=== PATIENT | female | born 1945 | race Caucasian/White ===

== ENCOUNTER → 2022-08-06 | Day surgery (SDC) | payer OTHER ==
--- NOTE | 2022-08-06 13:22 | RAD REPORT ---
EXAM DESCRIPTION: US - Guided FNA Non Breast - 08/06/2022 10:44 am CLINICAL HISTORY: Thyroid nodule ICD E04.1 COMPARISON: May 2022 ultrasound TECHNIQUE: Risks, benefits and alternatives of procedure explained to the patient and informed conse nt obtained. Skin and subcutaneous tissues anesthetized with lidocaine. Under sonographic guidance, five 25 gauge needle passes were obtained into the dominant nodule within the right lobe of the thyroid gland. Specimens given to pathology. Patient experienced no immediate complication IMPRESSION: Fine-needle aspiration of a dominant nodule within right lobe of thyroid gland
== END ==
LOC: FNA 08:00
PROVIDERS: ATTEND Nurse Practitioner Family
PROC: 0GJK3ZZ Inspection of Thyroid Gland, Percutaneous Approach (ICD-10-PCS; principal; 2022-08-06)
DX: E04.1 Nontoxic single thyroid nodule (principal)
CPT/HCPCS: 88162; 88305

== ENCOUNTER 2022-09-28 08:20 | Day surgery (SDC) | payer OTHER ==
[2022-09-17 12:48] LABS: Albumin 3.4 g/dL (3.4-5.0); Bilirubin Total 0.6 mg/dL (0.2-1.0); Potassium 4.3 mmol/L (3.5-5.1); Protein, Total 6.6 g/dL (6.4-8.2); Thyroid Stimulating Hormone 1.6 uIU/mL (0.358-3.740)
--- NOTE | 2022-09-18 15:17 | EKG ---
Test Date: 2022-09-17 Test Time: 12:02:57 Shop Teacher: KATHY MEASUREMENT RESULTS: Intervals: Rate: 66 IA: 156 QRSD: 82 QT: 402 QTc: 421 [place]: P: 52 IA: 156 QRS: 43 T: 64 INTERPRETIVE STATEMENTS: Normal sinus rhythm Normal ECG Compared to ECG 02/08/2014 11:19:59 No significant changes Electronically Signed On 09-18-22 15:15:21 BRAID FOLDER by Deejay Ríos
[2022-09-28] MEDS ORDERED: Ringers Lactate 1,000 ML IV ONE (08:44)
[2022-09-28] MEDS ORDERED: propofoL 200 MG/20 ML VIAL IV ONE (10:28)
[2022-09-28] MEDS ORDERED: ROCURONIUM 50 MG/5 ML VIAL IV ONE (10:29)
[2022-09-28] MEDS ORDERED: MIDAZOLAM HCL 2 MG/2 ML INJ ONE (10:29)
[2022-09-28] MEDS ORDERED: ONDANSETRON 4 MG/2 ML VIAL ONE (10:31)
[2022-09-28] MEDS ORDERED: GLYCOPYRROLATE 0.2 MG/ML SYR ONE (10:33)
[2022-09-28] MEDS ORDERED: LIDOCAINE 2% MPF 5 ML VIAL ONE (10:33)
[2022-09-28] MEDS ORDERED: NEOSTIGMINE 1 MG/ML -10 ML VIAL ONE (10:33)
[2022-09-28] MEDS ORDERED: FENTANYL CITR 100 MCG/2 ML ONE (10:34)
[2022-09-28] MEDS ORDERED: dexAMETHasone 10 MG/ML VIAL ONE (10:35)
[2022-09-28] MEDS ORDERED: BUPIVACAINE 0.5% PF 10 ML VIAL ONE (10:40)
[2022-09-28] MEDS ORDERED: EPINEPHRINE/PF 1 MG/ML AMP ONE (10:49)
[2022-09-28] MEDS ORDERED: EPHEDRINE SULF 50 MG/ML VIAL ONE (12:54)
[2022-09-28] MEDS ORDERED: Mastisol Adhesive Liq ONE (13:13)
--- NOTE | 2022-09-28 13:37 | P.OP ---
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 R thyroid & isthmus, B. R inf parathyroid candidate Findings: No obvious malignant features on frozen section Operative Technique: The patient presented with thyroid nodules, the right thyroid nodule was suspicious on molecular testing via FNA with a follicular lesion on cytopathology. The risks benefits and alternatives to surgery were discussed with the patient including hemithyroidectomy with possible completion thyroidectomy if obvious malignancy was noted on frozen section. The patient elected to proceed. Patient was brought to the operating room she was placed under general anesthesia via oral endotracheal tube. A shoulder roll was placed and the neck was extended. There were significant visible pulsations of the right lower neck. On palpation, the right thyroid nodule was difficult to palpate but there was a 1 cm firm nodule noted at the isthmus, consistent with preoperative imaging. Preoperative imaging was reviewed and there was no significant vascular abnormality noted that was discernible via available ultrasound. Approximately 2 mL of 0.5% Marcaine with epinephrine was injected into the planned incision site. The skin was prepped and draped in standard sterile fashion. A 4 to 5 cm incision was made through the skin and subcutaneous tissue using a 15 blade scalpel. Bovie electrocautery was used to incise through the fatty tissues and the platysma was identified. Skin rakes were used to retract the skin flaps well subplatysmal flaps were elevated superiorly and inferiorly. The skin flaps were retracted and the strap muscles were identified in the midline and carefully divided along the linea alba. The strap muscles were carefully elevated over the nodule within the isthmus. The right-sided strap muscles were then elevated off of the thyroid capsule. The inferior border was identified and carefully dissected from surrounding tissues. Vessels were divided using the LigaSure. The inferior parathyroid was identified along the capsule. It was carefully elevated off of the capsule but during dissection was noted to be devoid of vascular flow and was removed. A small portion of the parathyroid was sent to pathology for pathologic confirmation via frozen section. The remaining portion was placed in saline for possible later reimplantation. The middle thyroid vein and inferior thyroid vein were ligated using the LigaSure and the inferior pole was carefully mobilized. The isthmus was divided just to the left of the thyroid nodule using the LigaSure. The isthmus was then elevated off the anterior tracheal wall using Bovie electrocautery, taking care to avoid any damage to the tracheal wall. The lateral border of the thyroid was then identified and followed in an inferior to superior position. The superior pole of the thyroid was noted to extend quite high superiorly and to wrap around the upper portion of the larynx. The superior vascular pedicle was divided using the LigaSure. A Grimstead was used to grasp and retract the superior pole soft tissue attachments were bluntly dissected using a peanut sponge. Additional soft tissue attachments were divided using the LigaSure, freeing up the superior pole. Attention was then turned to the tracheoesophageal groove. The inferior pole was carefully elevated and dissection was judiciously carried out using a Max dissector until the recurrent laryngeal nerve was identified. The nerve appeared to be robust in its structure and dissection was carefully performed along the length of the nerve in an inferior to superior direction, carefully elevating the thyroid tissue and judiciously ligating small vessels with the LigaSure. Final tissue attachments were then released and the area of Shearer's ligament. A marking suture was placed at the isthmus and the thyroid was sent to pathology for frozen section analysis. The surgical bed was inspected and there was no evidence of active bleeding. The surgical bed was packed with Ray-Ira gauze sponges while awaiting pathologic diagnosis In intraoperative consultation with the pathologist, it was confirmed that the first specimen was consistent with parathyroid tissue with no notable abnormalities. She also confirmed that the 1.6 cm superior pole nodule appeared to be well-circumscribed. There were a number of microfollicles with a overall paucity of colloid but no obvious suspicious nuclear features and no obvious papillary cellular arrangement. Frozen section was felt to be likely benign. On return to the operating room, the gauze sponges were removed from the surgical bed and the surgical field was reinspected. There was no evidence of bleeding or bruising. The previously set aside parathyroid candidate was carefully morselized with a 15 blade scalpel and the tissue was placed between the strap muscles on the right side. A 10 Serbian round CHEYANNE drain was then placed through the skin of the right neck flap and secured using 2-0 silk suture. The drain was cut to appropriate length and placed within the right thyroid bed. A single Vicryl suture was used to approximate the strap muscles across the thyroid in midline. The skin was then closed in a layered fashion using 4-0 Vicryl deep sutures and Monocryl subcuticular sutures. After closure, the skin was cleaned and dried, Mastisol and Steri-Strips were applied to the incision. All sponge and peanut counts were reported as correct by the operating room staff. The patient was then returned to care of anesthesia for awakening and extubation in the operating room which proceeded without difficulty. Complications: None Drain(s): CHEYANNE drain Implants: none Transferred to: Recovery Room Condition: Good
[2022-09-28] MEDS: HYDROMORPHONE HCL 1 MG/ML INJ ONE ×2 (13:55→14:02)
[2022-09-28 14:12] VITALS: TEMP 97
[2022-09-28] MEDS ORDERED: TRAMADOL HCL 50 MG TAB ONE (15:04)
[2022-09-28 16:22] VITALS: BP 144/64; O2SAT 98
== END 2022-09-28 16:10 | disposition home or self-care (01) ==
LOC: OR 08:20
PROVIDERS: ADMIT Otolaryngology; ATTEND Otolaryngology
PROC: 0GBG0ZZ Excision of Left Thyroid Gland Lobe, Open Approach (ICD-10-PCS; 2022-09-28)
PROC: 0GBJ0ZZ Excision of Thyroid Gland Isthmus, Open Approach (ICD-10-PCS; 2022-09-28)
PROC: 0GTH0ZZ Resection of Right Thyroid Gland Lobe, Open Approach (ICD-10-PCS; principal; 2022-09-28 09:45)
DX: C73 Malignant neoplasm of thyroid gland (principal); I10 Essential (primary) hypertension
CPT/HCPCS: 60225; 93005; 36415; 88331; 88305; 88307; 84443; 83970; 80053; 82306; J2704; J2710; J0171; J2001; J2250; J3010; J1100; J1170; J7120; J2405

== ENCOUNTER 2023-07-18 08:53 | Observation (INO) | payer OTHER ==
[2023-07-12 12:33] LABS: Absolute Lymphocytes (CBC) 1.5 K/uL (0.7-4.9); Hematocrit 40.8 % (36.0-45.0); Lymphocytes % 15.6 % (15.3-44.8); MCV 88.1 fL (80-100); MPV 7.4 fL (7.6-11.3); Platelets 367 thou/uL (152-406); RBC Red Blood Cell Count 4.63 M/uL (3.86-4.86)
[2023-07-12 12:34] LABS: Specific Gravity 1.018 (1.005-1.030); Transitional Epithelial <5 /HPF (None Seen); Urine Bacteria None Seen /HPF (<20); Urine Bilirubin NEGATIVE (Negative); Urine Blood Negative (Negative); Urine Clarity Turbid (Clear); Urine Color Light-Yellow (Yellow); Urine Glucose NEGATIVE (Negative); Urine Protein NEGATIVE (Negative); Urine RBC <5 /HPF (None Seen); Urine Urobilinogen Normal (Normal)
[2023-07-18] MEDS ORDERED: Ringers Lactate 1,000 ML IV ONE (09:10)
[2023-07-18] MEDS ORDERED: CEFAZOLIN SODIUM 2 GM/VIAL ONE (09:10)
[2023-07-18] MEDS ORDERED: FENTANYL CITR 100 MCG/2 ML ONE (09:15)
[2023-07-18] MEDS ORDERED: propofoL 200 MG/20 ML VIAL IV ONE (09:15)
[2023-07-18] MEDS ORDERED: ROCURONIUM 50 MG/5 ML VIAL IV ONE (09:17)
[2023-07-18] MEDS ORDERED: MIDAZOLAM HCL 2 MG/2 ML INJ ONE (09:17)
[2023-07-18] MEDS ORDERED: VASOPRESSIN 20 UNIT/ML VIAL ONE (09:19)
[2023-07-18] MEDS ORDERED: ONDANSETRON 4 MG/2 ML VIAL ONE ×2 (09:19→09:53)
[2023-07-18] MEDS ORDERED: LIDOCAINE 2% MPF 5 ML VIAL ONE (09:19)
[2023-07-18] MEDS ORDERED: CEFAZOLIN SODIUM 1 GM/VIAL ONE (09:20)
[2023-07-18] MEDS ORDERED: NA CHLORIDE 0.9% 100 ML ONE (09:20)
[2023-07-18] MEDS ORDERED: LIDOCAINE HCL/EPINEPHRINE 20 ML MDV ONE (09:20)
[2023-07-18] MEDS ORDERED: METOCLOPRAMIDE 10 MG/2mL INJ ONE (09:55)
[2023-07-18] MEDS ORDERED: MORPHINE 10 MG/ML VIAL ONE (11:09)
[2023-07-18] MEDS ORDERED: ESZOPICLONE 1 MG TAB PO PRN (12:21)
[2023-07-18] MEDS ORDERED: ACETAMINOPHEN 500 MG TAB PO PRN (12:23)
[2023-07-18] MEDS ORDERED: PROMETHAZINE INJ 25 MG/ML AMP IV PRN (12:23)
[2023-07-18] MEDS ORDERED: NA CHLORIDE 0.9% 1,000 ML ONE ×2 (12:43→12:44)
[2023-07-18] MEDS: FENTANYL CITR 100 MCG/2 ML ONE ×2 (12:46→13:05)
[2023-07-18] MEDS ORDERED: KETOROLAC 30 MG/ML INJ ONE (13:02)
[2023-07-18 13:14] VITALS: O2SAT 97
--- OUTSIDE RECORDS SUMMARY | 2023-07-18 13:21 | XMS REPORT | Continuity of Care Document ---
:1945 Author Organization [facility] Address [address] [place] [id number] Care Team Providers Name Role Phone [email or web address] Attending Clinician Unavailable L_Pena Attending Clinician Unavailable [email or web address]_S Admitting Clinician Unavailable L_Pena Admitting Clinician Unavailable Payers Payer Name Policy Type Policy Number Effective Date Expiration Date Lulu MAGAÑA (MEDICARE [id number] 2022 REPLACEMENT PPO) 00:00:00 Problems This patient has no known problems. Allergies, Adverse Reactions, Alerts This patient has no known allergies or adverse reactions. Social History Smoking Status Start Date Stop Date Source Never Smoker [facility] Medications Ordered Filled Start Stop Current Ordering Indication Dosage Frequency Signature Comments Components Source Medication Medication Date Date Medication? Clinician (SIG) Name Name carvedilol carvedilol No carvedilol [place] 12.5 mg 12.5 mg 12.5 mg Commun i tablet TAKE tablet TAKE tablet ty 1 TABLET 1 TABLET TAKE 1 Hospi ta (12.5 MG (12.5 MG TABLET l TOTAL) BY TOTAL) BY (12.5 MG C linics MOUTH 2 MOUTH 2 TOTAL) BY (TWO) TIMES (TWO) TIMES MOUTH 2 A DAY WITH A DAY WITH (TWO) MEALS MEALS TIMES A DIRECTED DIRECTED DAY WITH MEALS DIRECTED clopidogrel clopidogrel No clopidogre [place] 75 mg 75 mg l 75 mg Communi tablet TAKE tablet TAKE tablet ty 1 TABLET BY 1 TABLET BY TAKE 1 Hospita MOUTH EVERY MOUTH EVERY TABLET BY l DAY DAY MOUTH Clinics EVERY DAY eszopiclone eszopiclone No eszopiclon [place] 2 mg tablet 2 mg tablet e 2 mg Communi TAKE 1 TAKE 1 tablet ty TABLET BY TABLET BY TAKE 1 Hos maggie MOUTH AT MOUTH AT TABLET BY l NIGHT IF NIGHT IF MOUTH AT Cli nics NEEDED FOR NEEDED FOR NIGHT IF SLEEP SLEEP NEEDED FOR SLEEP furosemide furosemide No furosemide [place] 20 mg 20 mg 20 mg Communi tablet TAKE tablet TAKE tablet ty 1 TABLET BY 1 TABLET BY TAKE 1 Hospita MOUTH PER MOUTH PER TABLET BY l WEEK ONCE A WEEK ONCE A MOUTH PER Clinics WEEK. KEEP WEEK. KEEP WEEK ONCE HYDRATED. HYDRATED. A WEEK. KEEP HYDRATED. levothyroxi levothyroxi No levothyrox [place] ne 75 mcg ne 75 mcg ine 75 mcg Communi tablet TAKE tablet TAKE tablet ty 1 TABLET BY 1 TABLET BY TAKE 1 Hospita MOUTH EVERY MOUTH EVERY TABLET BY l DAY DAY MOUTH Clinics EVERY DAY losartan 50 losartan 50 No losartan [place] mg tablet mg tablet 50 mg Comm uni TAKE 1 TAKE 1 tablet ty TABLET BY TABLET BY TAKE 1 Hos maggie MOUTH 1 MOUTH 1 TABLET BY l TIME EACH TIME EACH MOUTH 1 Cl inics DAY MONITOR DAY MONITOR TIME EACH BP AND HOLD BP AND HOLD DAY IF TOP BP IF TOP BP MONITOR BP NUMBER IS NUMBER IS AND HOLD LESS THAN LESS THAN IF TOP BP 110. 110. NUMBER IS LESS THAN 110. pravastatin pravastatin No pravastati [place] 40 mg 40 mg n 40 mg Communi tablet TAKE tablet TAKE tablet ty 1 TABLET BY 1 TABLET BY TAKE 1 Hospita MOUTH EVERY MOUTH EVERY TABLET BY l DAY IN THE DAY IN THE MOUTH Cl inics MORNING MORNING EVERY DAY IN THE MORNING Zithromax Zithromax No Zithromax [place] Z-Vasile 250 Z-Vasile 250 Z-Vasile 250 Communi mg tablet mg tablet mg tablet ty TAKE 2 TAKE 2 TAKE 2 Hospita TABLETS TABLETS TABLETS l (500 MG) BY (500 MG) BY (500 MG) Clinics ORAL ROUTE ORAL ROUTE BY ORAL ONCE DAILY ONCE DAILY ROUTE ONCE FOR 1 DAY FOR 1 DAY DAILY FOR THEN 1 THEN 1 1 DAY THEN TABLET (250 TABLET (250 1 TABLET MG) BY ORAL MG) BY ORAL (250 MG) ROUTE ONCE ROUTE ONCE BY ORAL DAILY FOR 4 DAILY FOR 4 ROUTE ONCE DAYS DAYS DAILY FOR 4 DAYS alprazolam alprazolam No alprazolam [place] 1 mg tablet 1 mg tablet 1 mg C ommuni TAKE 1 TAKE 1 tablet ty TABLET BY TABLET BY TAKE 1 Hos maggie MOUTH EVERY MOUTH EVERY TABLET BY l DAY AT DAY AT MOUTH Clinics BEDTIME BEDTIME EVERY DAY NEEDED FOR NEEDED FOR AT BEDTIME SLEEP SLEEP NEEDED FOR SLEEP bupropion bupropion No bupropion [place] HCl XL 300 HCl XL 300 HCl XL 300 Communi mg 24 hr mg 24 hr mg 24 hr ty tablet, tablet, tablet, Hospit a extended extended extended l release release release Clinic s TAKE 1 TAKE 1 TAKE 1 TABLET BY TABLET BY TABLET BY MOUTH EVERY MOUTH EVERY MOUTH DAY IN THE DAY IN THE EVERY DAY MORNING -DO MORNING -DO IN THE NOT CRUSH, NOT CRUSH, MORNING CHEW, OR CHEW, OR -DO NOT SPLIT. SPLIT. CRUSH, CHEW, OR SPLIT. Vital Signs Vital Name Observation Time Observation Value Comments Source BP Diastolic 2022-12-27 00:00:00 82 mm[Hg] [facility] Height 2022-12-27 00:00:00 65 [in_i] [facility] BMI (Body Mass 2022-12-27 00:00:00 24.3 kg/m2 [facility]) [facility] BP Systolic 2022-12-27 00:00:00 145 mm[Hg] [facility] Body Weight 2022-12-27 00:00:00 2336 [oz_av] [facility] Procedures This patient has no known procedures. Plan of Care Planned Activity Planned Date Details Comments Source Diagnostic Test 2022-12-27 rapid SARS CoV 2 Ag, [facility] Pending 00:00:00 QL [place], respiratory Hospital Clinics specimen [code = rapid SARS CoV 2 Ag, QL [place], respiratory specimen] Diagnostic Test 2022-12-27 rapid strep group A, [facility] Pending 00:00:00 throat [code = rapid Hospita Clinics strep group A, throat] Instructions [facility] s Encounters Start End Encounter Admission Attending Care Care Encounter Source Date/Time Date/Time Type Type Clinicians Facility Department ID 2023-07-10 2023-07-10 Outpatient GC_GCBZW_Ka PRIV PRIV [id number] [facility] 00:00:00 00:00:00 barry_S [id number] Medic al 2023-05-22 2023-05-22 Outpatient GC_GCBZW_Ka PRIV PRIV [id number] [facility] 00:00:00 00:00:00 julianaa_Lulu [id number] Medic al 2023-05-08 2023-05-08 Outpatient GC_GCBZW_Ka PRIV PRIV [id number] [facility] 00:00:00 00:00:00 diyala_S [id number] Medic al 2023-04-18 2023-04-18 Outpatient GC_GCBZW_Ka PRIV PRIV [id number] [facility] 00:00:00 00:00:00 diyala_S [id number] Medic al 2023-04-10 2023-04-10 Outpatient GC_GCBZW_Ka PRIV PRIV [id number] [facility] 00:00:00 00:00:00 diyala_S [id number] Medic al 2023-04-09 2023-04-09 Outpatient GC_GCBZW_Ka PRIV PRIV [id number] [facility] 00:00:00 00:00:00 diyala_S [id number] Medic al 2023-01-13 2023-01-13 Outpatient L_Pena [facility] [id number] 023 [place] 00:00:00 00:00:00 0416 [facility] i ty [facility]osp[facility] Clinics 2022-12-27 2022-12-27 Outpatient L_Pena [facility] [id number] 023 [place] 00:00:00 00:00:00 0330 Commun i ty Hospita l Clinics 2022-12-27 2022-12-27 [facility] [place] - [place] 30 [place] 00:00:00 00:00:00 Gutierrez Candelario Comm beulah HARRIS, MSN, [facility]: [address], CLINIC [address] [place] [phone] , Ph. Results Test Description Test Time Test Comments Results Result Comments Source rapid strep group A, throat 2022-12-27 14:55:00 Test Item Value Reference Range Interpretation Comme nts Strep (test code = Strep) [facility]Presence] in Respiratory specimen by Rapid [id number] 14:55:00 Test Item Value Reference Range Interpretation Comments SARS CoV 2 (test code = SARS CoV 2) negative [facility]
[2023-07-18 14:13] VITALS: BMI 23.3
[2023-07-18] MEDS: Ringers Lactate 1,000 ML IV SCH ×2 (15:08→22:24)
[2023-07-18] MEDS: MORPHINE 2 MG/ML SYR IV PRN ×2 (15:45→22:13)
[2023-07-18] MEDS: carvediloL 12.5 MG TAB PO SCH (22:14)
[2023-07-19] MEDS: MORPHINE 2 MG/ML SYR IV PRN ×4 (03:16→17:12)
[2023-07-19] MEDS: Ringers Lactate 1,000 ML IV SCH ×2 (04:07→11:07)
[2023-07-19] MEDS ORDERED: LEVOTHYROXINE SOD 0.1 MG TAB PO SCH (06:30)
[2023-07-19 07:15] LABS: Absolute Lymphocytes (CBC) 0.9 K/uL (0.7-4.9); Hematocrit 33.5 % (36.0-45.0); Lymphocytes % 11.9 % (15.3-44.8); MPV 7.1 fL (7.6-11.3); Platelets 265 thou/uL (152-406)
[2023-07-19 07:27] LABS: Potassium 4.3 mEq/L (3.5-5.1)
[2023-07-19] MEDS: carvediloL 12.5 MG TAB PO SCH (08:29)
[2023-07-19] MEDS ORDERED: SERTRALINE HCL 50 MG TAB PO SCH (09:00)
[2023-07-19] MEDS ORDERED: lisinopriL 10 MG TAB PO SCH (09:00)
[2023-07-19] MEDS ORDERED: LOSARTAN/HCTZ 50-12.5 PO SCH (09:00)
[2023-07-19 16:53] VITALS: BP 135/62; TEMP 99.5
--- NOTE | 2023-07-22 09:51 | OP ---
Date of Procedure: 07/18/2023 Surgeon: Maria Eugenia Caceres MD [employer]illing Machine Hand: Tashia Baker Preoperative Diagnosis: Cystocele or anterior wall prolapse, vault prolapse, stress urinary incontin ence and urgency incontinence with overactive bladder. Postoperative Diagnoses: 1.Stage II anterior wall and apical prolapse. 2.Distal posterior wall defect, perineal defect, stress urinary incontinence, and overactive bladder , possible apical enterocele. Procedures Performed: 1.Vaginal biologic graft augmented anterior wall repair and bilateral sacrospinous ligament fixation , colpopexy. 2.Distal posterior wall repair and perineorrhaphy. 3.Transobturator midurethral sling using the single incision Solyx system and cystoscopy. Estimated Blood Loss: 100. Urine Output: 100. Fluids: Ringer's lactate 1 L. Specimens: No specimens. Complications: No complication. Drains: Buenrostro catheter, vaginal packing. Findings: POP-Q -1, 0, -3, 4.5, moderate 8, - 2, -2 apical enterocele. Cystoscopy was ne gative with no evidence of perforation or foreign body in the bladder, in the areas of the sling as w ell as the colpopexy. Strong jets of urine from both orifices. Biologic [place] dermis graft was fashi oned to 8 x 6 x 5 cm. Two Prolene sutures for the sacrospinous fixation and PDS sutures for the whit e lines on both sides and PDS sutures for the vaginal apex as well as the distal anterior wall fixati on of the graft to the connective tissue with an excellent lift of the anterior wall, also the distal 3 cm of the anterior vaginal wall where the urethra lies. Then, posterior defect repaired without a graft. Description Of Procedure: After informed consent was verified, patient was taken back to the OR, lois lizzette in supine fashion on the operating table. 2 g of Ancef was given. SCDs were placed. She was pl aced under general anesthesia. She was placed in dorsal lithotomy position using Derek stirrups. Lo wer abdomen, vulva, vagina, perineum, and bilateral thighs were prepped and draped in a sterile fashi on with Betadine and POP-Q was then done. Time-out was done and the procedure was started after placing a Buenrostro in the bladder and draining the bladder, then retracting it superiorly. The anterior vaginal wall was significantly dropped as well as lateral paravaginal space. Two 3-0 Vicryl sutures were placed at top of the vaginal apex on each side to tag the areas of the vaginal apex and the . Then, ischial spines were palpated. 5 cm of the anterior vaginal wall was injected with dilute vasopressin and opened up with a 15-blade superiorly and inferiorly, extending the incision 5 cm from the UVJ to the vaginal wall. Then, dissection was carried in the plane below the connective tissue between the connective tissue a nd the bladder flap. Paravaginal space was entered by taking down the bladder on both sides past the pubic ramus. Then from the paravaginal space, pararectal space was entered. The ischial spine was palpated and this was cleaned up to expose sacrospinous ligament by sweeping medially and posteriorly and then laterally and superiorly to clean the white line. This dissection was performed on both si asha. Then anteriorly dissection performed of the bladder to the bladder neck, it from the vaginal epithelium and sub-epithelium, and proximally at the vaginal wall, the enterocele was dissec kay and vaginal connective tissue was exposed. Capio device was used to take down Prolene sutures 2 cm medial and posterior to the ischial spine on the sacrospinous ligament without encircling it, but going for a good bite of it, 1 on each side and PDS on Capio was placed a centimeter and half lateral and superior to the ischial spine on the white line, 1 on each side. Then, Ed retractor was used. All the sutures were placed on clamps and re tracted. Three PDS sutures were placed in the proximal midline near the vault on the vaginal epithelium and co nnective tissue and distally at the UVJ. Then, the graft was fashioned with interspinous length of 8 cm, anterior-posterior length of 6 cm and distal width of 5 cm. The central 3-0 PDS sutures at the proximal and distal parts of the anterior vaginal wall were fixed to the graft, then the Prolene sutu res on the sacrospinous ligament were hooked onto the lateral most part of the graft and on the proxi mal part with the ciarra stitch and then PDS sutures were just passed through the graft 3 cm distal t o the sacrospinous bite. The vaginal epithelium closed with 2-0 Vicryl stitch first and then this was left on a cla mp. Then, central, proximal, midline sutures were tied down to the graft and then distal midline sut ures were tied down to the graft. Then, the sacrospinous bites were tied down on the ligament with t he graft touching the ligament snugly and then PDS sutures on the white line were tied down. There w as excellent lift of the entire anterior vaginal wall including the distal anterior vaginal wall that was under the urethra. This was a very satisfactory lift, then the vaginal epithelium was closed in a continuous running horizontal mattress fashion. Midurethral slin.5 cm midurethral incision was made after injecting dilute vasopressin under the connective tissue. The vaginal epithelium, sub-epithelium, and connective tissue were incised. The n, tunnels were made underneath this towards the ipsilateral obturator space. After passing the infe rior pubic ramus, the obturator membrane was perforated and track was widened by pulling the scissors out. Similar dissection was performed on the right and left. Then, the Solyx graft was taken. Mid line was marked with Monocryl suture. Then, it was loaded onto the needle. Then this was entered ac cording to directions, passing it to the black line, falling through the tract of the entire dissecti on, and once it passed the obturator membrane, then it was advanced carefully with gentle pressure to wards the obturator muscle. Once the anchor was in the obturator muscle and I could feel it, the sli ng arm was deployed. Then, with a gentle tap, I confirmed that it was anchored well. The second silvio e was loaded in a similar fashion. The pass was taken in a 45 degrees angle. This was deployed on t he contralateral obturator muscle. Then leaving this in place, I was able to place the Metzenbaum sc issors behind the mesh graft. Mesh graft lay very flat and apposition with the urethra with slight p ulling instrument between the urethra and the graft and and tensioned the ureth ra appropriately after the instrument was removed. Then, the graft was deployed and the needle was r emoved. After antibiotic irrigation here, it was closed with the help of 3-0 Vicryl in a continuous running locked fashion. Buenrostro was removed. Cystoscopy was performed. No evidence of any perforatio n of the mesh in the lateral wall. Both ureteric orifices were well visualized. No foreign body. B oth the ureters were patent. The bladder was then drained and re-catheterized and retracted superior ly. There was no perforation of the lateral fornices. Posterior perineorrhaphy: Dilute vasopressin was injected at the perineum and the distal part of the posterior wall. A ilana shaped incision was made in the distal part and the perineum as well. Va ginal epithelium and perineal epithelium were excised. The connective tissue was dissected and defec t was exposed. The distal rectovaginal septum had to be reattached to the perineal body. The perine al body reconstruction was performed with the help of 2-0 Vicryl sutures, 2 layers of 3 interrupted s utures. Once this was done, then the rectovaginal septum was to be connected with 2-0 Vicryl sutures , 2 on each side. Then closed the vaginal epithelium and the perineal epithelium with the help of a continuous running 3-0 Vicryl in the subcutaneous in subcuticular fashion. Rectovaginal exam was per formed all the way up to the ischial spine area. No evidence of any suture, foreign body, or trauma to the rectum. Vaginal packing was placed after changing gloves. All the instrument, needle, and sponge counts were correct at the end of the case. The patient tolerated the procedure very well. No pulmonary or car diac complications. She had recovered and taken to PACU in stable condition for overnight admission. We will remove the vaginal packing in the morning and then she will be discharged home for a voidin g trial with the visiting nurses. Her sister and son would be briefed about her condition and her pr ocedure. She has a followup in office in 1 week and 6 weeks. SAUL/NICOLE Voice ID: [id number] Report ID: [id number]
== END 2023-07-19 18:57 | disposition home health service (06) ==
LOC: OR 08:53 → 2ND 12:23
PROVIDERS: ADMIT Obstetrics & Gynecology; ATTEND Obstetrics & Gynecology
PROC: 0JUC0JZ Supplement of Pelvic Region Subcutaneous Tissue and Fascia with Synthetic Substitute, Open Approach (ICD-10-PCS; 2023-07-18)
PROC: 0JQC0ZZ Repair Pelvic Region Subcutaneous Tissue and Fascia, Open Approach (ICD-10-PCS; 2023-07-18)
PROC: 0USG8ZZ Reposition Vagina, Via Natural or Artificial Opening Endoscopic (ICD-10-PCS; 2023-07-18)
PROC: 0TSD0ZZ Reposition Urethra, Open Approach (ICD-10-PCS; principal; 2023-07-18 10:00)
DX: N81.12 Cystocele, lateral (principal); N32.81 Overactive bladder; N39.46 Mixed incontinence
CPT/HCPCS: 57288; 85025 ×2; 81001; 80048; 36415 ×2; 86900; 86850; 85610; 86901; 85730; 94010 ×2; 31720; 94760; 57260; 57267; 57282; J2704; J2765; J2001; J2250; J3010 ×2; J2270 ×6; J2405 ×2; C1771; J7120 ×5; J7030 ×2; J0690; G0378; G0379

== ENCOUNTER 2024-09-26 20:21 | Inpatient (IN) | payer OTHER ==
--- OUTSIDE RECORDS SUMMARY | 2024-09-26 20:23 | XMS REPORT | Continuity of Care Document ---
Author Name Unknown Address [address] [place], [place] [id number] [facility]connect Address [address] [place] [address] [address] [place] [address] Care Team Providers Care Terrazzo Journeyman Name Role Phone [email or web address]_S Attending Clinician Unavaila ble L_Pena Attending Clinician Unavailable [email or web address]_S Admitting Clinician Unavaila ble L_Pena Admitting Clinician Unavailable Payers Payer Name Policy Type Policy Number Effective Date Expirati on Date Source [employer] (MEDICARE REPLACEMENT PPO) [id number] 2022 00:00:00 Problems Condition Name Condition Details Condition Category Status Onset Date Resolution Date Last Treatment Date Treating Clinician Comments Source Acute urinary tract infection Acute Urinary Tract Infection Problem Active 2023-09 00:00: 00 [facility] Amnesia for day to day facts Amnesia for Day to Day Facts Problem Active 2023-09 00:00: 00 [facility] Impairment of balance Impairment of Balance Problem Active 2023-09 00:00: 00 [facility] Atrophy of skeletal muscle of pelvis Atrophy of Skeletal Muscle of Pelvis Problem Active 2022-09 00:00: 00 [facility] Constipati on Constipati on Problem Active 2022-09 0-11 00:00: 00 [facility] Lateral cystocele Lateral Cystocele Problem Active 2022-09 0-11 00:00: 00 [facility] Female stress incontinen ce Female Stress Incontinen ce Problem Active 2022-09 0- 00:00: 00 [facility] Atrophic vaginitis Atrophic Vaginitis Problem Active 2022-09 0-11 00:00: 00 [facility] Incontinen ce of feces Incontinen ce of Feces Problem Active 2022-09 0-11 00:00: 00 [facility] Urge incontinen ce of urine Urge Incontinen ce of Urine Problem Active 2022-09 0-11 00:00: 00 [facility] Hypothyroi dism Hypothyroi dism Problem Active 8 00:00: 00 [facility] Hyperlipid emia Hyperlipid emia Problem Active 8 00:00: 00 [facility] Anxiety Anxiety Problem Active 8 00:00: 00 [facility] Depressive disorder Depressive Disorder Problem Active 05-08 00:00: 00 [facility] Essential hypertensi on Essential Hypertensi on Problem Active 05-08 00:00: 00 [facility] Overactive urinary bladder Overactive Urinary Bladder Problem Active 05-08 00:00: 00 [facility] 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 Ordering Clinician Indication Dosage Frequency Signature (SIG) Comments Components Source carvedilol 12.5 mg tablet TAKE 1 TABLET (12.5 MG TOTAL) BY MOUTH 2 (TWO) TIMES A DAY WITH MEALS DIRECTED carvedilol 12.5 mg tablet TAKE 1 TABLET (12.5 MG TOTAL) BY MOUTH 2 (TWO) TIMES A DAY WITH MEALS DIRECTED No carvedilol 12.5 mg tablet TAKE 1 TABLET (12.5 MG TOTAL) BY MOUTH 2 (TWO) TIMES A DAY WITH MEALS DIRECTED [facility] clopidogrel 75 mg tablet TAKE 1 TABLET BY MOUTH EVERY DAY clopidogrel 75 mg tablet TAKE 1 TABLET BY MOUTH EVERY DAY No clopidogre l 75 mg tablet TAKE 1 TABLET BY MOUTH EVERY DAY [facility] eszopiclone 2 mg tablet TAKE 1 TABLET BY MOUTH AT NIGHT IF NEEDED FOR SLEEP eszopiclone 2 mg tablet TAKE 1 TABLET BY MOUTH AT NIGHT IF NEEDED FOR SLEEP No eszopiclon e 2 mg tablet TAKE 1 TABLET BY MOUTH AT NIGHT IF NEEDED FOR SLEEP [facility] furosemide 20 mg tablet TAKE 1 TABLET BY MOUTH PER WEEK ONCE A WEEK. KEEP HYDRATED. furosemide 20 mg tablet TAKE 1 TABLET BY MOUTH PER WEEK ONCE A WEEK. KEEP HYDRATED. No furosemide 20 mg tablet TAKE 1 TABLET BY MOUTH PER WEEK ONCE A WEEK. KEEP HYDRATED. [facility] levothyroxi ne 75 mcg tablet TAKE 1 TABLET BY MOUTH EVERY DAY levothyroxi ne 75 mcg tablet TAKE 1 TABLET BY MOUTH EVERY DAY No levothyrox ine 75 mcg tablet TAKE 1 TABLET BY MOUTH EVERY DAY [facility] losartan 50 mg tablet TAKE 1 TABLET BY MOUTH 1 TIME EACH DAY MONITOR BP AND HOLD IF TOP BP NUMBER IS LESS THAN 110. losartan 50 mg tablet TAKE 1 TABLET BY MOUTH 1 TIME EACH DAY MONITOR BP AND HOLD IF TOP BP NUMBER IS LESS THAN 110. No losartan 50 mg tablet TAKE 1 TABLET BY MOUTH 1 TIME EACH DAY MONITOR BP AND HOLD IF TOP BP NUMBER IS LESS THAN 110. [facility] pravastatin 40 mg tablet TAKE 1 TABLET BY MOUTH EVERY DAY IN THE MORNING pravastatin 40 mg tablet TAKE 1 TABLET BY MOUTH EVERY DAY IN THE MORNING No pravastati n 40 mg tablet TAKE 1 TABLET BY MOUTH EVERY DAY IN THE MORNING [facility] Zithromax Z-Vasile 250 mg tablet TAKE 2 TABLETS (500 MG) BY ORAL ROUTE ONCE DAILY FOR 1 DAY THEN 1 TABLET (250 MG) BY ORAL ROUTE ONCE DAILY FOR 4 DAYS Zithromax Z-Vasile 250 mg tablet TAKE 2 TABLETS (500 MG) BY ORAL ROUTE ONCE DAILY FOR 1 DAY THEN 1 TABLET (250 MG) BY ORAL ROUTE ONCE DAILY FOR 4 DAYS No Zithromax Z-Vasile 250 mg tablet TAKE 2 TABLETS (500 MG) BY ORAL ROUTE ONCE DAILY FOR 1 DAY THEN 1 TABLET (250 MG) BY ORAL ROUTE ONCE DAILY FOR 4 DAYS [facility] alprazolam 1 mg tablet TAKE 1 TABLET BY MOUTH EVERY DAY AT BEDTIME NEEDED FOR SLEEP alprazolam 1 mg tablet TAKE 1 TABLET BY MOUTH EVERY DAY AT BEDTIME NEEDED FOR SLEEP No alprazolam 1 mg tablet TAKE 1 TABLET BY MOUTH EVERY DAY AT BEDTIME NEEDED FOR SLEEP [facility] bupropion HCl XL 300 mg 24 hr tablet, extended release TAKE 1 TABLET BY MOUTH EVERY DAY IN THE MORNING -DO NOT CRUSH, CHEW, OR SPLIT. bupropion HCl XL 300 mg 24 hr tablet, extended release TAKE 1 TABLET BY MOUTH EVERY DAY IN THE MORNING -DO NOT CRUSH, CHEW, OR SPLIT. No bupropion HCl XL 300 mg 24 hr tablet, extended release TAKE 1 TABLET BY MOUTH EVERY DAY IN THE MORNING -DO NOT CRUSH, CHEW, OR SPLIT. [facility] aspirin aspirin No aspirin [facility] Bactrim DS 800 mg-160 mg tablet Take 1 tablet twice a day by oral route for 7 days. Bactrim DS 800 mg-160 mg tablet Take 1 tablet twice a day by oral route for 7 days. No 1 BID Bactrim DS 800 mg-160 mg tablet Take 1 tablet twice a day by oral route for 7 days. [facility] carvedilol 12.5 mg tablet Take 1 tablet twice a day by oral route. carvedilol 12.5 mg tablet Take 1 tablet twice a day by oral route. No 1 BID carvedilol 12.5 mg tablet Take 1 tablet twice a day by oral route. [facility] estradiol 0.01% (0.1 mg/gram) vaginal cream Insert 0.5 g 3 times a week by vaginal route at bedtime for 90 days. estradiol 0.01% (0.1 mg/gram) vaginal cream Insert 0.5 g 3 times a week by vaginal route at bedtime for 90 days. No .5g Q56H estradiol 0.01% (0.1 mg/gram) vaginal cream Insert 0.5 g 3 times a week by vaginal route at bedtime for 90 days. [facility] levothyroxi ne 100 mcg tablet Take 1 tablet every day by oral route. levothyroxi ne 100 mcg tablet Take 1 tablet every day by oral route. No 1 Q1D levothyrox ine 100 mcg tablet Take 1 tablet every day by oral route. [facility] lisinopril 10 mg tablet Take 1 tablet every day by oral route. lisinopril 10 mg tablet Take 1 tablet every day by oral route. No 1 Q1D lisinopril 10 mg tablet Take 1 tablet every day by oral route. [facility] losartan 50 mg tablet Take 1 tablet every day by oral route. losartan 50 mg tablet Take 1 tablet every day by oral route. No 1 Q1D losartan 50 mg tablet Take 1 tablet every day by oral route. [facility] Lunesta 2 mg tablet Take 1 tablet every day by oral route. Lunesta 2 mg tablet Take 1 tablet every day by oral route. No 1 Q1D Lunesta 2 mg tablet Take 1 tablet every day by oral route. [facility] Myrbetriq 25 mg tablet,exte nded release Take 1 tablet every day by oral route for 30 days. Myrbetriq 25 mg tablet,exte nded release Take 1 tablet every day by oral route for 30 days. No 1 Q1D Myrbetriq 25 mg tablet,ext ended release Take 1 tablet every day by oral route for 30 days. [facility] oxybutynin oxybutynin No oxybutynin [facility] Zoloft 50 mg tablet Take 1 tablet every day by oral route. Zoloft 50 mg tablet Take 1 tablet every day by oral route. No 1 Q1D Zoloft 50 mg tablet Take 1 tablet every day by oral route. [facility] Vital Signs Vital Name Observation Time Observation Value Comments S ource BP Systolic 2024-09-22 00:00:00 165 mm[Hg] [facility] Height 2024-09-22 00:00:00 65 [in_i] [facility] BP Diastolic 2024-09-22 00:00:00 81 mm[Hg] [facility] Weight 2024-09-22 00:00:00 151.8 [lb_av] [facility] BMI (Body Mass Index) 2024-09-22 00:00:00 25.3 kg/m2 [facility] al BP Diastolic 2022-12-27 00:00:00 82 mm[Hg] [facility] Height 2022-12-27 00:00:00 65 [in_i] [facility] BMI (Body Mass Index) 2022-12-27 00:00:00 24.3 kg/m2 [facility] BP Systolic 2022-12-27 00:00:00 145 [facility]Hg[facility] 2022-12-27 00:00:00 2336 [oz_av] [facility] Procedures Procedure Date / Time Performed Performing Clinicia n Source Colpopexy Extraperitoneal 2023-07-19 00:00:00 [facility] Cardiac - Coronary Artery Stent [facility] Hysterectomy [facility] Plan of Care Planned Activity Planned Date Details Comments Source Diagnostic Test Pending 2022-12-27 00:00:00 rapid SARS CoV 2 Ag, QL IA, respiratory specimen [code = rapid SARS CoV 2 Ag, QL IA, respiratory specimen] [facility] Diagnostic Test Pending 2022-12-27 00:00:00 rapid strep group A, throat [code = rapid strep group A, throat] [facility] Instructions [facility] Encounters Start Date/Time End Date/Time Encounter Type Admission Type Attending [facility] Care Facility Care Department Encounter ID Source 2024-09-22 00:00:00 2024-09-22 00:00:00 Maria Eugenia Caceres MD: [address] [place] [address] S, [address], [place] [address] , Ph. [facility] - [email or web address]_La [facility]* [id number] [facility] 2023-07-26 00:00:00 2023-07-26 00:00:00 Outpatient GC_GCBZW_Ka diyala_S PRIV PRIV [id number] [facility] 2023-07-10 00:00:00 2023-07-10 00:00:00 Outpatient GC_GCBZW_Ka diyala_S PRIV PRIV [id number] [facility] 2023-07-10 00:00:00 2023-07-10 00:00:00 Outpatient GC_GCBZW_Ka diyala_S PRIV PRIV [id number] [facility] 2023-05-22 00:00:00 2023-05-22 00:00:00 Outpatient GC_GCBZW_Ka diyala_S PRIV PRIV [id number] [facility] 2023-05-08 00:00:00 2023-05-08 00:00:00 Outpatient GC_GCBZW_Ka diyala_S PRIV PRIV [id number] [facility] 2023-04-18 00:00:00 2023-04-18 00:00:00 Outpatient GC_GCBZW_Ka diyala_S PRIV PRIV [id number] [facility] 2023-04-10 00:00:00 2023-04-10 00:00:00 Outpatient GC_GCBZW_Ka diyala_S PRIV PRIV [id number] [facility] 2023-04-09 00:00:00 2023-04-09 00:00:00 Outpatient GC_GCBZW_Ka diyala_S PRIV PRIV [id number] [facility] 2023-01-13 00:00:00 2023-01-13 00:00:00 Outpatient L_Pena [facility] [id number] 2022-12-27 00:00:00 2022-12-27 00:00:00 Outpatient L_Pena [facility] [id number] [facility] 2022-12-27 00:00:00 2022-12-27 00:00:00 Lety Candelario APRN, MSN, [facility]-: [address] [place] [address], [address] [place] [id number] , Ph. [facility] [id number] [facility] Results Test Description Test Time Test Comments Results Result Co m[facility] [id number] 14:55:00* Test Item Value Reference Range Interpretation Comme nts Strep (test code = Strep) negative [facility]19[facility] Ag [Presence] in Respiratory specimen by Rapid [id number] 14:55:00* Test Item Value Reference Range Interpretation Comme nts SARS CoV 2 (test code = SARS CoV 2) negative [facility]
[2024-09-26 21:01] LABS: Absolute Basophils 0.1 K/uL (0-0.5); Absolute Eosinophils 0.2 K/uL (0-0.5); Absolute Lymphocytes (CBC) 1.2 K/uL (0.7-4.9); Absolute Monocytes 0.8 K/uL (0.1-1.3); Basophils % 1.3 % (0-1.3); Eosinophils % 3.9 % (0-4.4); Hematocrit 38.6 % (36.0-45.0); Hemoglobin 12.8 g/dL (12.0-15.0); Lymphocytes % 23.4 % (15.3-44.8); MCH 29.2 pg (27.0-35.0); MCHC 33.1 g/dL (32.0-36.0); MCV 88.3 fL (80-100); MPV 7.7 fL (7.6-11.3); Monocytes % 15.6 % (3.3-12.3); Neutrophils % 55.8 % (41.7-73.7); Platelets 306 thou/uL (152-406); RBC Red Blood Cell Count 4.37 M/uL (3.86-4.86); Red Cell Distribution Width 14.1 % (12.1-15.2)
[2024-09-26 21:06] LABS: PT Prothrombin Time 11.7 SECONDS (9.4-12.5); PTT, Activated Partial Thromb 30.6 SECONDS (24.3-36.9); Protime INR 1.05
--- NOTE | 2024-09-26 21:14 | RAD REPORT ---
EXAMINATION: CT STROKE HEAD CT WITHOUT CONTRAST CLINICAL INDICATION: Female, 78 years old.STROKE ALERT TECHNIQUE: Axial CT images from the skull base to the vertex without intravenous contrast. Coronal an d sagittal reformatted images were created from the data set. One or more of the following dose reduction techniques were used: Automated exposure control, adjustment of the mA and/or kV according to patient size, and/or iterative reconstruction. Unless otherwise specified, incidental findings do not require dedicated imaging follow-up. [id number]. COMPARISON: Brain MRI 05/28/2022 FINDINGS: INTRACRANIAL: No acute intracranial hemorrhage. No hydrocephalus. No mass effect or midline shift. Mo derate chronic small vessel ischemic changes.Mild cerebral atrophy. VASCULATURE: No visualized abnormalities in the arteries or dural venous sinuses. SCALP/SKULL: No significant soft tissue or osseous abnormalities. SINUSES: The visualized paranasal sinuses and mastoid air cells are predominantly clear. IMPRESSION: No acute intracranial abnormality. Conveyed to [facility] Manzano by Dr. Ellis at 0910 on 09/26/24
--- NOTE | 2024-09-26 21:16 | RAD REPORT ---
EXAMINATION: CTA NECK CLINICAL INDICATION: Female, 78 years old. weakness TECHNIQUE: Axial CT images were obtained from the aortic arch to the skull base after intravenous con trast utilizing angiographic protocol with 3D post-processing (maximum intensity projection images, volume rendered images and/or shaded surface rendered images). One or more of the following dose redu ction techniques were used: Automated exposure control, adjustment of the mA and/or kV according to patient size, and/or iterative reconstruction. Unless otherwise specified, incidental findings do not require dedicated imaging follow-up. [id number]. NASCET criteria used. Mild 0-49% stenosis Moderate 50-69% stenosis Severe 70-99% stenosis COMPARISON: No prior exam. FINDINGS: AORTA: The imaged aortic arch is normal. CCA: The common carotid arteries are patent and normal in caliber. ICA/ECA: Bilateral internal and external carotid arteries are patent. There is no significant interna l carotid artery stenosis. Where applicable, degree of stenosis is measured using NASCET-like criteria. VERTEBRAL: Left dominant vertebral artery. Both vessels are patent. SOFT TISSUE: No significant neck soft tissue abnormalities. The visualized lung apices are clear. Mul tilevel degenerative changes are present in the spine. 3D images confirm these findings. IMPRESSION: No flow-limiting arterial stenosis or dissection identified within the neck.
[2024-09-26 21:27] LABS: ALT/SGPT 15 U/L (13-56); AST/SGOT 14 U/L (15-37); Albumin 2.9 g/dL (3.4-5.0); Alkaline Phosphatase 102 U/L (45-117); Anion Gap 8.6 mEq/L (5.0-15.0); BUN Blood Urea Nitrogen 22 mg/dL (7-18); Bicarbonate 23 mEq/L (21-32); Bilirubin Total 0.2 mg/dL (0.2-1.0); Glomerular Filtration Rate 43 ml/min (=/>90); Glucose Level 111 mg/dL (74-106); Magnesium 2.1 mg/dL (1.6-2.4); Potassium 3.6 mEq/L (3.5-5.1); Protein, Total 5.9 g/dL (6.4-8.2); Sodium Level 141 mEq/L (136-145); Troponin High Sensitivity 6.3 pg/mL (<58.9)
--- NOTE | 2024-09-26 21:30 | RAD REPORT ---
EXAMINATION: CTA HEAD CLINICAL INDICATION: Female, 78 years old. WEAKNESS TECHNIQUE: Axial CT images were obtained through the head after intravenous contrast utilizing angiog raphic protocol with 3D post-processing (maximum intensity projection images, volume rendered images and/or shaded surface rendered images). One or more of the following dose reduction technique s were used: Automated exposure control, adjustment of the mA and/or kV according to patient size, and/or iterative reconstruction. Unless otherwise specified, incidental findings do not require dedic ated imaging follow-up. COMPARISON: No prior exam. FINDINGS: ICA: The petrous, cavernous, and supraclinoid segments of the bilateral internal carotid arteries are normal. The ophthalmic artery origins are visualized and normal. The posterior communicating arteries are patent. Calcified plaque involving both cavernous carotids. KENRICK: Anterior cerebral arteries are normal bilaterally. The anterior communicating artery is patent. MCA: Severe multifocal stenoses of the right M3 and M4 segments of the MCA. The left MCA is patent. OPTICAL GLASS SILVERER: Posterior cerebral arteries are normal bilaterally. Vertebrobasilar: Severe multifocal stenoses of the right V4 segment of the vertebral artery. Left alexys tebral artery is dominant and patent. The basilar artery is patent. 3D images confirm these findings. IMPRESSION: 1. Severe focal stenoses of the M3 and M4 segments of the right MCA. High-grade focal stenosis versus short segment occlusion at the left P1 segment of the posterior cerebral artery. There may also be a left P2/P3 segment occlusion. A vasculitis is within the differential. 2. 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 The left vertebral art marissa is dominant and patent.
[2024-09-26 21:38] LABS: Bilirubin Direct < 0.2 mg/dL (0-0.2)
--- NOTE | 2024-09-26 21:49 | ER ---
Nurse's Notes [facility] Name: Zhanna Shahid Age: 78 yrs Sex: Female : 1945 Arrival Date: 09/26/2024 Time: 20:21 Bed 2 Private MD: Diagnosis: Weakness-left upper extremity and left lower extremity;Paresthesia of skin-left hand;Facial weakness-left Presentation: 09/26 20:32 Chief complaint: EMS states: TONED OUT FOR STROKE SYMPTOMS, WEAKNESS TO LT SIDE, FACIAL dd2 DROOP, HEADACHE AND DIZZINESS THAT BEGAN MARY MARLENE. PT REPORTS FREQUENT FALLS AND DX RECENTLY WITH TIA. Coronavirus screen: At this time, the client does not indicate any symptoms associated with coronavirus-19. Ebola Screen: No symptoms or risks identified at this time. An acute neurological deficit is present. The charge nurse has been notified. The patients blood glucose was checked prior to arriving to the hospital and was found to be hyperglycemic. The patients blood glucose has been rechecked and is now normal. Initial Sepsis Screen: Does the patient meet any 2 criteria? No. Patient's initial sepsis screen is negative. Does the patient have a suspected source of infection? No. Patient's initial sepsis screen is negative. Risk Assessment: Do you want to hurt yourself or someone else? Patient reports no desire to harm self or others. Onset of symptoms was September 22, 2024. Care prior to arrival: Glucose check: 194. 20:32 Method Of Arrival: [facility] dd2 20:32 Acuity: LLOYD 3 dd2 Triage Assessment: 20:37 The onset of the patients symptoms was more than six hours ago. General: Appears in no dd2 apparent distress. Behavior is calm, cooperative, appropriate for age. Pain: Denies pain. EENT: No deficits noted. No signs and/or symptoms were reported regarding the EENT system. Neuro: Nova Agitation-Sedation Scale (RASS): 0 - Alert and Calm Level of Consciousness is awake, alert, obeys commands, Oriented to person, place, time, situation, Appropriate for age Elevator Examiner And Adjuster are weak on left Moves all extremities. Gait is unsteady, Speech is normal, Facial droop on left, Pupils are PERRLA, Numbness in left hand Reports dizziness, headache in entire numbness in left hand weakness. Cardiovascular: Patient's skin is warm and dry. Respiratory: Reports shortness of breath at rest Airway is patent Respiratory effort is even, unlabored, Respiratory pattern is regular, symmetrical, Breath sounds are clear bilaterally. GI: No deficits noted. No signs and/or symptoms were reported involving the gastrointestinal system. : No deficits noted. No signs and/or symptoms were reported regarding the genitourinary system. Derm: No deficits noted. No signs and/or symptoms reported regarding the dermatologic system. Musculoskeletal: Circulation, motion, and sensation intact. Range of motion: intact in all extremities. 09/27 00:11 The onset of the patients symptoms was at an unknown time. dd2 Historical: - Allergies: 09/26 20:37 No Known Allergies; dd2 - PMHx: 20:37 Cerebrovascular accident; depressive disorder; Hypertensive disorder; dd2 - PSHx: 20:37 Stented artery; Total abdominal hysterectomy; dd2 - Immunization history:: Adult Immunizations up to date. - Infectious Disease History:: Denies. - Social history:: Smoking status: Patient denies any tobacco usage or history of. Screenin:42 [facility] ED Fall Risk Assessment (Adult) History of falling in the last 3 months, dd2 including since admission Yes- fall prone (multiple falls) (3 pts) Confusion or Disorientation No (0 pts) Intoxicated or Sedated No (0 pts) Impaired Gait No (0 pts) Mobility Assist Device Used Yes (1 pt) Altered Elimination No (0 pt) Score/Fall Risk Level 3 or more points = High Risk Oriented to surroundings, Maintained a safe environment, Educated pt \T\ family on fall prevention, incl call for assistance when getting out of bed, Assessed \T\ reinforced patient's understanding of fall precautions, Provided non-skid footwear, Hourly rounding (assess needs \T\ fall precautionary measures) done, Used ambulatory aids as needed (educated on \T\ assisted with). Abuse screen: Denies threats or abuse. Nutritional screening: No deficits noted. Tuberculosis screening: No symptoms or risk factors identified. Assessment: 20:42 VAN Scoring: Arm Drift: Minor drift Visual Disturbance: No visual disturbance noted. dd2 Aphasia: No aphasia noted. Neglect: No neglect noted. TNKase (Tenecteplase) Screening: Contraindications: Patient reports onset of signs and symptoms of stroke greater than 6 hours ago: Yes. Reassessment: SEE TRIAGE ASSESSMENT FOR FULL ASSESSMENT. 22:02 Tyler Swallow Protocol Exclusion Criteria: Unable to remain alert for testing: No NPO dd2 for medical/surgical reason by provider order No Tracheostomy tube present No No thin liquids due to preexisting dysphagia/baseline modified diet thickened liquids No Exclusion Criteria Result: Proceed Brief Cognitive Screen What is your name? Normal, Where are you right now? Normal, What year is it? Normal. Oral Mechanism Examination Facial Symmetry: Normal, Motion: Normal, Lip Closure: Normal, Oral Mechanism Result: Normal. 3 oz Water Swallow Challenge: Pt able to drink all water without stopping, coughing, choking or throat clearing: Yes Result: PASS MD Notified: Juve TOUSSAINT. 23:12 Reassessment: Patient is alert, oriented x 3, equal unlabored respirations, skin dd2 warm/dry/pink. Purewick placed for urine collection and urinary incontinence Patient denies pain at this time. Patient states symptoms have not improved. Vital Signs: 20:32 BP 142 / 93; Pulse 72; Resp 16; Temp 98.2; Pulse Ox 95% on R/A; Weight 69.85 kg; dd2 22:02 BP 143 / 98; Pulse 78; Resp 16; Pulse Ox 95% on R/A; dd2 23:10 BP 157 / 90; Pulse 82; Resp 18; Temp 98.2; Pulse Ox 98% ; Pain 0/10; bm8 23:10 Pain Scale: Adult bm8 [place] Coma Score: 20:42 Eye Response: spontaneous(4). Motor Response: obeys commands(6). Verbal Response: dd2 oriented(5). Total: 15. 23:10 Eye Response: spontaneous(4). Motor Response: obeys commands(6). Verbal Response: bm8 oriented(5). Total: 15. NIH Stroke Scale Scores: 20:40 NIHSS Score: 6 cp 20:42 NIHSS Score: 6 dd2 ED Course: 20:23 Patient arrived in ED. jj6 20:32 JACKSON PURDY, RN is Primary Nurse. dd2 20:34 Juve Manzano PA is PHCP. cp 20:34 Jun Braxton MD is Attending Physician. cp 20:37 Triage completed. dd2 20:37 Arm band placed on right wrist. Patient placed in an exam room, on a stretcher, on dd2 court monitor, on pulse oximetry. 20:42 Patient has correct armband on for positive identification. Placed in gown. Bed in low dd2 position. Call light in reach. Side rails up X2. Client placed on continuous cardiac and pulse oximetry monitoring. NIBP monitoring applied. awake overnight monitor on. Door closed. Noise minimized. Warm blanket given. Pillow given. Verbal reassurance given. 20:42 No provider procedures requiring assistance completed. Inserted saline lock: 20 gauge dd2 in left antecubital area, using aseptic technique. Blood collected. Flushed with 10 mL NS. Patient maintains SpO2 saturation greater than 95% on room air. 21:10 CT Stroke Brain w/o Contrast In Process Unspecified. EDMS 21:10 CT Head Angio In Process Unspecified. EDMS 21:10 CT Neck Angio In Process Unspecified. EDMS 21:47 Stroke CXR 1 View In Process Unspecified. EDMS 21:50 Assisted with bedpan. vk 22:11 [id number] called [facility] for transfer talked to Steph. sp 22:30 Yong Adam MD is Hospitalizing Provider. cp 23:27 Patient admitted, IV remains in place. dd2 09/27 00:11 Provided Education on: admission education. dd2 Administered Medications: 09/26 22:01 Drug: Meclizine PO 25 mg PO once Route: PO; dd2 22:31 Follow up: Response: No adverse reaction dd2 22:21 Drug: Clopidogrel PO 75 mg PO once Route: PO; dd2 22:51 Follow up: Response: No adverse reaction dd2 22:22 Drug: foLIC Acid IVPB 1 mg IVPB once Route: IVPB; Site: left antecubital; dd2 22:32 Follow up: IV Status: Completed infusion; IV Intake: 10ml dd2 22:37 Follow up: Response: No adverse reaction dd2 22:22 Drug: Aspirin PO Chewable Tablet 324 mg PO once; 81 mg tablets x 4 Route: PO; dd2 22:51 Follow up: Response: No adverse reaction dd2 Medication: 20:42 VIS not applicable for this client. dd2 Point of Care Testing: Blood Glucose: 20:37 Blood Glucose: 124 mg/dL; dd2 Ranges: Intake: 22:32 IV: 10ml; Total: 10ml. dd2 Outcome: 21:49 ER care complete, transfer ordered by MD. lees 22:32 Decision to Hospitalize by Provider. cp 09/27 00:10 Admitted to Med/surg accompanied by tech, room 229, with chart, dd2 Condition: stable Instructed on the need for admit, Demonstrated understanding of instructions, 00:12 Patient left the ED. dd2 NIH Stroke Scale - NIH Stroke Score Date: 09/26/2024 Time: 20:40 Total Score = 6 10. Dysarthria (speech clarity - read or repeat words) - 0(Normal) 11. Extinction and Inattention (visual/tactile/auditory/spatial/personal) - 0(No abnormality) 1a. Level of Consciousness (LOC) - 0(Alert) 1b. Level of Consciousness (LOC) (Month \T\ Age) - 0(Both) 1c. LOC Commands (Open \T\ Closes Eyes/Commercial Fisherman) - 0(Both) 2. Best Gaze (Lateral Gaze Paresis) - 0(Normal) 3. Visual Field Loss - 0(No visual loss) 4. Facial Palsy - 1(Minor Paralysis) 5a. Left Arm: Motor (10-second hold) - 1(Drift) 5b. Right Arm: Motor (10-second hold) - 0(No drift) 6a. Left Leg: Motor (5-second hold - always test supine) - 1(Drift) 6b. Right Leg: Motor (5-second hold - always test supine) - 0(No drift) 7. Limb Ataxia (finger/nose \T\ heel/kelly - test with eyes open) - 2(Present in two limbs) 8. Sensory Loss (pinprick arms/legs/face) - 1(Mild to moderate loss) 9. Best Language: Aphasia (description/naming/reading) - 0(No aphasia) Initials: cp NIH Stroke Scale - NIH Stroke Score Date: 09/26/2024 Time: 20:42 Total Score = 6 10. Dysarthria (speech clarity - read or repeat words) - 0(Normal) 11. Extinction and Inattention (visual/tactile/auditory/spatial/personal) - 0(No abnormality) 1a. Level of Consciousness (LOC) - 0(Alert) 1b. Level of Consciousness (LOC) (Month \T\ Age) - 0(Both) 1c. LOC Commands (Open \T\ Closes Eyes/Commercial Fisherman) - 0(Both) 2. Best Gaze (Lateral Gaze Paresis) - 0(Normal) 3. Visual Field Loss - 0(No visual loss) 4. Facial Palsy - 1(Minor Paralysis) 5a. Left Arm: Motor (10-second hold) - 1(Drift) 5b. Right Arm: Motor (10-second hold) - 0(No drift) 6a. Left Leg: Motor (5-second hold - always test supine) - 1(Drift) 6b. Right Leg: Motor (5-second hold - always test supine) - 0(No drift) 7. Limb Ataxia (finger/nose \T\ heel/kelly - test with eyes open) - 2(Present in two limbs) 8. Sensory Loss (pinprick arms/legs/face) - 1(Mild to moderate loss) 9. Best Language: Aphasia (description/naming/reading) - 0(No aphasia) Initials: dd2 Signatures: Dispatcher [employer] EDMS Kimberly Miles Corey, PA PA cp Jeffries, Jennifer jj6 Giselle Paul Brad, RN RN bm8 JACKSON PURDY RN RN dd2 Corrections: (The following items were deleted from the chart) 09/26 23:17 23:16 IV Status: Completed infusion; IV Intake: 10ml dd2 dd2
--- NOTE | 2024-09-26 21:49 | EDPHYS ---
Physician Documentation [facility] Name: Zhanna Shahid Age: 78 yrs Sex: Female : 1945 Arrival Date: 09/26/2024 Time: 20:21 Bed 2 Private MD: ED Physician Jun Braxton HPI: 09/26 20:35 This 78 yrs old Female presents to ER via EMS with complaints of S/S of Possible Stroke.cp 20:35 The patient's problem is reported as a facial droop, on left, paresthesias, left hand, cp weakness, in the left upper extremity, in the left lower extremity, dizziness. Onset: The symptoms/episode began/occurred 3 day(s) ago. Duration: The episode is continuous. Associated signs and symptoms: Pertinent negatives: abdominal pain, blurred vision, chest pain, confusion, headache. 20:35 Patient's baseline: Neuro: alert and fully oriented, Motor: no deficits, Ambulation: cp walks with assist only, uses walker, Speech: normal. Historical: - Allergies: 20:37 No Known Allergies; dd2 - PMHx: 20:37 Cerebrovascular accident; depressive disorder; Hypertensive disorder; dd2 - PSHx: 20:37 Stented artery; Total abdominal hysterectomy; dd2 - Immunization history:: Adult Immunizations up to date. - Infectious Disease History:: Denies. - Social history:: Smoking status: Patient denies any tobacco usage or history of. ROS: 20:38 Constitutional: Negative for body aches, chills, fever, poor PO intake, cp 20:38 Eyes: Negative for injury, pain, redness, and discharge, cp 20:38 ENT: Negative for drainage from ear(s), ear pain, sore throat, difficulty swallowing, difficulty handling secretions, 20:38 Cardiovascular: Negative for chest pain, edema, palpitations, 20:38 Respiratory: Negative for cough, shortness of breath, wheezing, 20:38 : Negative for urinary symptoms, 20:38 Neuro: Positive for dizziness, numbness, weakness, Negative for altered mental status, syncope, near syncope, 20:38 All other systems are negative, Exam: 20:40 Constitutional: The patient appears in no acute distress, alert, awake, cp non-diaphoretic, non-toxic, well developed, well nourished, 20:40 Head/Face: Normocephalic, atraumatic. cp 20:40 Eyes: Periorbital structures: appear normal, Pupils: equal, round, and reactive to light and accomodation, Extraocular movements: intact throughout, Conjunctiva: normal, no exudate, no injection, Sclera: no appreciated abnormality, Lids and lashes: appear normal, bilaterally, 20:40 ENT: External ear(s): are unremarkable, Nose: is normal, Mouth: Lips: moist, Oral mucosa: moist, Posterior pharynx: Airway: no evidence of obstruction, patent, 20:40 Neck: ROM/movement: is normal, is supple, without pain, no range of motions limitations, 20:40 Chest/axilla: Inspection: normal, 20:40 Cardiovascular: Rate: normal, Rhythm: regular, Edema: is not appreciated, JVD: is not appreciated, 20:40 Respiratory: the patient does not display signs of respiratory distress, Respirations: normal, no use of accessory muscles, no retractions, labored breathing, is not present, Breath sounds: are clear throughout, no decreased breath sounds, no stridor, no wheezing, 20:40 Abdomen/GI: Inspection: abdomen appears normal, Palpation: abdomen is soft and non-tender, 20:40 Back: pain, is absent, ROM is normal, 20:40 Neuro: Orientation: to person, place, situation, Mentation: able to follow commands, Cerebellar function: Romberg testing is abnormal, mild left arm and left leg drift, Motor: moves all fours, Sensation: numbness, that is mild, of the left hand, 20:45 ECG was reviewed by the Attending Physician. cp 21:35 Radiologist reports: findings as noted cp Vital Signs: 20:32 BP 142 / 93; Pulse 72; Resp 16; Temp 98.2; Pulse Ox 95% on R/A; Weight 69.85 kg; dd2 22:02 BP 143 / 98; Pulse 78; Resp 16; Pulse Ox 95% on R/A; dd2 23:10 BP 157 / 90; Pulse 82; Resp 18; Temp 98.2; Pulse Ox 98% ; Pain 0/10; bm8 23:10 Pain Scale: Adult bm8 NIH Stroke Scale Scores: 20:40 NIHSS Score: 6 cp 20:42 NIHSS Score: 6 dd2 [place] Coma Score: 20:42 Eye Response: spontaneous(4). Motor Response: obeys commands(6). Verbal Response: dd2 oriented(5). Total: 15. 23:10 Eye Response: spontaneous(4). Motor Response: obeys commands(6). Verbal Response: bm8 oriented(5). Total: 15. MDM: 20:35 ED course: patient is not a tnk candidate as onset of symptoms 3 days prior. cp 20:36 Medical Screening Exam initiated cp 21:00 Differential diagnosis: CVA, TIA, Parkinson disease, metabolic disorder, drug effects. cp 21:45 Data reviewed: vital signs, nurses notes, lab test result(s), EKG, radiologic studies, cp CT scan, plain films. 21:45 Management of patient was discussed with the following: Clinical Advisor: DR Barboza who cp recommends transfer for vascular consult. 09/26 20:35 Order name: Basic Metabolic Panel; Complete Time: 21:41 09/26 20:35 Order name: CBC with Diff; Complete Time: 21:13 09/26 21:13 Interpretation: Normal except: MN% 15.6. 09/26 20:35 Order name: Hepatic Function; Complete Time: 21:41 09/26 20:35 Order name: High Sensitivity Troponin; Complete Time: 21:41 09/26 20:35 Order name: Magnesium; Complete Time: 21:41 09/26 20:35 Order name: Protime (+inr); Complete Time: 21:13 09/26 20:35 Order name: Ptt, Activated; Complete Time: 21:13 09/26 20:42 Order name: Glucose, Ancillary Testing; Complete Time: 20:52 EDMD 09/26 20:52 Interpretation: Reviewed. 09/26 20:52 Order name: Urinalysis w/ reflexes cp 09/26 23:04 Order name: CBC with Automated Diff EDMS 09/26 23:04 Order name: CBC with Automated Diff EDMS 09/26 23:04 Order name: Comprehensive Metabolic Panel EDMD 09/26 23:04 Order name: Comprehensive Metabolic Panel EDMS 09/26 23:05 Order name: Lipid Profile EDMS 09/26 23:05 Order name: Lipid Profile EDMD 09/26 20:35 Order name: CT Stroke Brain w/o Contrast; Complete Time: 21:34 09/26 21:34 Interpretation: Report reviewed. cp 09/26 20:35 Order name: Stroke CXR 1 View; Complete Time: 22:04 cp 09/26 20:35 Order name: CT Head Angio; Complete Time: 21:34 cp 09/26 21:36 Interpretation: Report reviewed. cp 09/26 20:35 Order name: CT Neck Angio; Complete Time: 21:34 cp 09/26 23:04 Order name: Echo with Doppler EDMD 09/26 23:29 Order name: Brain Wo Cont EDMD 09/26 23:04 Order name: CONS Physician Consult EDMD 09/26 23:04 Order name: IRF Screen EDMD 09/26 23:04 Order name: Physical Therapy Consult EDMD 09/26 23:04 Order name: Speech Therapy Consult [facility] 09/26 20:35 Order name: Accucheck; Complete Time: 20:50 cp 09/26 20:35 Order name: Cardiac monitoring; Complete Time: 20:50 cp 09/26 20:35 Order name: EKG - Nurse/Tech; Complete Time: 20:51 cp 09/26 20:35 Order name: IV Saline Lock; Complete Time: 20:51 cp 09/26 20:35 Order name: Labs collected and sent; Complete Time: 20:51 cp 09/26 20:35 Order name: NPO; Complete Time: 20:51 cp 09/26 20:35 Order name: O2 Per Protocol; Complete Time: 20:51 cp 09/26 20:35 Order name: O2 Sat Monitoring; Complete Time: 20:51 cp 09/26 20:35 Order name: Stroke Swallow Screen; Complete Time: 22:01 cp EC:45 Rate is 69 beats/min. Rhythm is regular. HI interval is normal. QRS interval is normal. cp QT interval is normal. T waves are Inverted in lead aVR. Interpreted by me. Reviewed by me. Administered Medications: 22:01 Drug: Meclizine PO 25 mg PO once Route: PO; dd2 22:31 Follow up: Response: No adverse reaction dd2 22:21 Drug: Clopidogrel PO 75 mg PO once Route: PO; dd2 22:51 Follow up: Response: No adverse reaction dd2 22:22 Drug: foLIC Acid IVPB 1 mg IVPB once Route: IVPB; Site: left antecubital; dd2 22:32 Follow up: IV Status: Completed infusion; IV Intake: 10ml dd2 22:37 Follow up: Response: No adverse reaction dd2 22:22 Drug: Aspirin PO Chewable Tablet 324 mg PO once; 81 mg tablets x 4 Route: PO; dd2 22:51 Follow up: Response: No adverse reaction dd2 Point of Care Testing: Blood Glucose: 20:37 Blood Glucose: 124 mg/dL; dd2 Ranges: Critical Glucose Levels:Adult <50 mg/dl or >400 mg/dl <40 mg/dl or >180 mg/dl Disposition Summary: 09/26/24 22:32 Hospitalization Ordered Notes: Hospitalization Status: Inpatient Admission cp Provider: Yong Adam cp Location: Telemetry/MedSurg (Inpatient) cp Condition: Stable(09/26/24 22:32) cp Problem: new(09/26/24 22:32) cp Symptoms: are unchanged(09/26/24 22:32) cp Bed/Room Type: Standard cp Room Assignment: 229(09/26/24 23:15) vk Diagnosis - Weakness - left upper extremity and left lower extremity(09/26/24 22:32) cp - Paresthesia of skin - left hand(09/26/24 22:32) cp - Facial weakness - left cp Forms: - Medication Reconciliation Form cp - SBAR form cp - Leadership Thank You Letter cp Critical care time excluding procedures: 09/27 16:30 Critical care time: Bedside Care: 10 minutes, Consultation: 25 minutes, Family cp Intervention: 5 minutes. Total time: 40 minutes NIH Stroke Scale - NIH Stroke Score Date: 09/26/2024 Time: 20:40 Total Score = 6 10. Dysarthria (speech clarity - read or repeat words) - 0(Normal) 11. Extinction and Inattention (visual/tactile/auditory/spatial/personal) - 0(No abnormality) 1a. Level of Consciousness (LOC) - 0(Alert) 1b. Level of Consciousness (LOC) (Month \T\ Age) - 0(Both) 1c. LOC Commands (Open \T\ Closes Eyes/Call Center Team Leader) - 0(Both) 2. Best Gaze (Lateral Gaze Paresis) - 0(Normal) 3. Visual Field Loss - 0(No visual loss) 4. Facial Palsy - 1(Minor Paralysis) 5a. Left Arm: Motor (10-second hold) - 1(Drift) 5b. Right Arm: Motor (10-second hold) - 0(No drift) 6a. Left Leg: Motor (5-second hold - always test supine) - 1(Drift) 6b. Right Leg: Motor (5-second hold - always test supine) - 0(No drift) 7. Limb Ataxia (finger/nose \T\ heel/kelly - test with eyes open) - 2(Present in two limbs) 8. Sensory Loss (pinprick arms/legs/face) - 1(Mild to moderate loss) 9. Best Language: Aphasia (description/naming/reading) - 0(No aphasia) Initials: cp NIH Stroke Scale - NIH Stroke Score Date: 09/26/2024 Time: 20:42 Total Score = 6 10. Dysarthria (speech clarity - read or repeat words) - 0(Normal) 11. Extinction and Inattention (visual/tactile/auditory/spatial/personal) - 0(No abnormality) 1a. Level of Consciousness (LOC) - 0(Alert) 1b. Level of Consciousness (LOC) (Month \T\ Age) - 0(Both) 1c. LOC Commands (Open \T\ Closes Eyes/Call Center Team Leader) - 0(Both) 2. Best Gaze (Lateral Gaze Paresis) - 0(Normal) 3. Visual Field Loss - 0(No visual loss) 4. Facial Palsy - 1(Minor Paralysis) 5a. Left Arm: Motor (10-second hold) - 1(Drift) 5b. Right Arm: Motor (10-second hold) - 0(No drift) 6a. Left Leg: Motor (5-second hold - always test supine) - 1(Drift) 6b. Right Leg: Motor (5-second hold - always test supine) - 0(No drift) 7. Limb Ataxia (finger/nose \T\ heel/kelly - test with eyes open) - 2(Present in two limbs) 8. Sensory Loss (pinprick arms/legs/face) - 1(Mild to moderate loss) 9. Best Language: Aphasia (description/naming/reading) - 0(No aphasia) Initials: dd2 Addendum: 09/30/2024 16:18 I was immediately available for consultation during this patient's visit. I did ec2 not personally see the patient or discuss the patient with the ELLIOT. . Signatures: Dispatcher [employer] EDMS Juve Manzano PA PA cp Jun Braxton MD MD ec2 Giselle Paul DIANA RN RN dd2 Corrections: (The following items were deleted from the chart) 09/26 20:35 20:35 Chest Single View+RAD.RAD.BRZ ordered. EDMS EDMS 20:36 20:36 Neck Angio+CT.RAD.BRZ ordered. EDMS EDMS 20:52 20:52 Urinalysis+U.LAB.BRZ ordered. EDMS EDMS 22:23 21:49 Doctor cp cp 22:23 21:49 [facility] cp cp 22:23 21:49 Higher level of care cp cp 22:23 21:49 Stable cp cp 22:23 21:49 new cp cp 22:23 21:49 are unchanged cp cp 22:23 21:49 Weakness cp cp 22:23 21:49 Paresthesia of skin cp cp 23:15 22:32 cp vk
--- NOTE | 2024-09-26 21:54 | RAD REPORT ---
EXAM: Chest Single View HISTORY: left arm and leg weakness COMPARISON: 03/12/2018 FINDINGS: LUNGS/PLEURA: The lungs are clear. No pleural effusions or pneumothorax. No pulmonary edema. MEDIASTINUM: The mediastinal silhouette is within normal limits. CARDIAC: Mild cardiomegaly. UPPER ABDOMEN: No significant abnormality. BONES: No acute fracture. LINES/TUBES/OTHER: N/A IMPRESSION: No evidence of acute cardiopulmonary disease.
[2024-09-26] MEDS ORDERED: MECLIZINE HCL 12.5 MG TAB ONE (21:57)
[2024-09-26] MEDS ORDERED: FOLIC ACID 5 MG/ML VIAL ONE (22:14)
[2024-09-26] MEDS ORDERED: CLOPIDOGREL 75 MG TABLET ONE (22:14)
[2024-09-26] MEDS ORDERED: ASPIRIN 81 MG CHEWABLE TABLET ONE (22:14)
[2024-09-26] MEDS ORDERED: ACETAMINOPHEN 500 MG TAB PO PRN (22:58)
[2024-09-26] MEDS ORDERED: ONDANSETRON 4 MG/2 ML VIAL IV PRN (22:58)
--- NOTE | 2024-09-26 23:26 | P.HP ---
Certification for Inpatient Patient admitted to: Inpatient With expected LOS: >2 Midnights Practitioner: I am a practitioner with admitting privileges, knowledge of patient current condition, hospital course, and medical plan of care. Services: Services provided to patient in accordance with Admission requirements found in Title 42 Section 412.3 of the Code of Federal Regulations Patient History Date of Service: 09/27/24 Reason for admission: Left side weakness History of Present Illness: 78 yrs old Female with past medical history of hypertension, depression, CAD status post stent, CVA, history of Farr's palsy came to ER with complaints of Possible Stroke. The patient's problem is reported as a facial droop, on left, paresthesias, left hand, weakness, in the left upper extremity, in the left lower extremity, dizziness. Started 3 days ago . Denies any chest pain or shortness of breath. No fever or chills. Patient was assessed in the ER and was admitted for further management of CVA. Allergies No Known Drug Allergies Allergy (Verified 07/12/23 11:53) Unknown Home medications list reviewed: Yes Home Medications: Aspirin Enteric Coated [ASPIRIN 81 MG EC*] 162 mg PO DAILY #60 tab 05/07/13 Losartan-50/Hctz-12.5 [Hyzaar 50-12.5*] 1 tab PO DAILY #30 tab 05/07/13 carvediloL [Coreg*] 12.5 mg PO BID #0 tab 05/07/13 Eszopiclone [Lunesta] 3 mg PO BEDTIME PRN 09/17/22 Levothyroxine [Synthroid] 100 mcg PO DAILY 07/12/23 Lisinopril [Zestril] 10 mg PO DAILY 07/12/23 Sertraline [Zoloft] 50 mg PO DAILY 07/12/23 - Past Medical/Surgical History Diabetic: No Past Medical History: Reviewed- Non-Contributory -: Farr palsey twice -: HTN -: Hypertension -: Hypercholesterol -: [place] Past Surgical History: Reviewed- Non-Contributory -: Hysterectomy -: thyroid CA removal -: Heart stent x1 - Family History Family History: Reviewed- Non-Contributory - Social History Smoking Status: Never smoker Alcohol use: Yes CD- Drugs: No Caffeine use: Yes Review of Systems 10-point ROS is otherwise unremarkable Physical Examination - Vital Signs Temperature: 97.7 F Blood Pressure: 152/74 Pulse: 72 Respirations: 18 Pulse Ox (%): 94 - Physical Exam General: Alert, In no apparent distress, Oriented x3 HEENT: Atraumatic, Normocephalic Neck: Supple Respiratory: Clear to auscultation bilaterally, Normal air movement Cardiovascular: Normal pulses, Regular rate/rhythm, Normal S1 S2 Capillary refill: <2 Seconds Gastrointestinal: Soft and benign, W/out hepatosplenomegaly Musculoskeletal: No clubbing, No swelling Integumentary: No rashes, No tenderness/swelling Neurological: Abnormal gait, Abnormal speech, Abnormal strength Lymphatics: No axilla or inguinal lymphadenopathy - Studies Laboratory Data (last 24 hrs) 09/26/24 09/26/24 09/26/24 20:48 20:48 20:48 WBC 5.30 Hgb 12.8 Hct 38.6 Plt Count 306 PT 11.7 INR 1.05 APTT 30.6 Sodium 141 Potassium 3.6 BUN 22 H Creatinine 1.26 H Glucose 111 H Magnesium 2.1 Total Bilirubin 0.2 AST 14 L ALT 15 Alkaline Phosphatase 102 Assessment and Plan - Plan CVA Numbness / Weakness of left-sided body Started on aspirin and statin CT CTA findings noted MRI brain ordered Monitor neuro vital signs Monitor under telemetry Neurology consulted Will get an echocardiogram lipid panel and an A1c PT OT ST evaluation Possible vasculitis CTA findings noted Severe focal stenoses of the M3 and M4 segments of the right MCA. High-grade focal stenosis versus short segment occlusion at the left P1 segment of the posterior cerebral artery. Left P2/P3 segment occlusion. 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 The left vertebral artery is dominant and patent. To rule out vasculitis Will get a CRP level Hypertension Antihypertensives titrated Continue home medications and titrate as needed Permissive hypertension for now Hyperlipidemia Continue statin GI/DVT prophylaxis Advanced directive full code Discharge Plan: Home Plan to discharge in: 48 Hours - Advance Directives Does patient have a Living Will: No Does patient have a Durable POA for Healthcare: No - Code Status/Comfort Care Code Status: Full Code Time Spent Managing Pts Care (In Minutes): 48
[2024-09-27 00:48] LABS: Specific Gravity 1.029 (1.005-1.030); Sqamous Epithelial None Seen /HPF (None Seen); Urine Bacteria None Seen /HPF (<20); Urine Bilirubin NEGATIVE (Negative); Urine Blood Negative (Negative); Urine Clarity Clear (Clear); Urine Color Colorless (Yellow); Urine Culture Reflex Order NOT NEEDED; Urine Glucose NEGATIVE (Negative); Urine Ketones NEGATIVE (Negative); Urine Microscopic Reflex YN ORDER UMIC; Urine Mucus Slight /HPF (None Seen); Urine Nitrite NEGATIVE (Negative); Urine Protein NEGATIVE (Negative); Urine RBC None Seen /HPF (None Seen); Urine Urobilinogen Normal (Normal); Urine WBC None Seen /HPF (<5); Urine pH 6.5 (5.0-7.0)
[2024-09-27] MEDS: NA CHLORIDE 0.9% 1,000 ML IV SCH (01:49)
[2024-09-27 04:33] LABS: Absolute Basophils 0.1 K/uL (0-0.5); Absolute Eosinophils 0.2 K/uL (0-0.5); Absolute Lymphocytes (CBC) 1.5 K/uL (0.7-4.9); Absolute Monocytes 0.8 K/uL (0.1-1.3); Absolute Neutrophil 3.1 K/uL (1.8-8.0); Basophils % 1.1 % (0-1.3); Eosinophils % 3.6 % (0-4.4); Hemoglobin 13.3 g/dL (12.0-15.0); Lymphocytes % 26.3 % (15.3-44.8); MCH 30.1 pg (27.0-35.0); MCHC 34.2 g/dL (32.0-36.0); MCV 87.9 fL (80-100); MPV 7.2 fL (7.6-11.3); Nucleated Red Blood Cells % 0.1 % (0-0); Platelets 321 thou/uL (152-406); RBC Red Blood Cell Count 4.43 M/uL (3.86-4.86); Red Cell Distribution Width 14.1 % (12.1-15.2)
[2024-09-27 04:44] LABS: Albumin/Globulin Ratio 0.9 (1.1-1.8); Anion Gap 8.8 mEq/L (5.0-15.0); Bilirubin Total 0.3 mg/dL (0.2-1.0); Globulin 3.2 g/dL (2.3-3.5); Potassium 3.8 mEq/L (3.5-5.1); Protein, Total 6.2 g/dL (6.4-8.2)
[2024-09-27 05:36] VITALS: BMI 25.6
[2024-09-27] MEDS: carvediloL 12.5 MG TAB PO SCH (08:29)
[2024-09-27] MEDS: lisinopriL 10 MG TAB PO SCH (08:29)
[2024-09-27] MEDS: SERTRALINE HCL 50 MG TAB PO SCH (08:29)
[2024-09-27] MEDS: ENOXAPARIN 40 MG/0.4 ML SQ SCH (08:29)
[2024-09-27] MEDS: LEVOTHYROXINE SOD 0.1 MG TAB PO SCH (08:29)
[2024-09-27] MEDS: PNEUMOCOCCAL VACCINE 0.5 ML IMVAC ONE (12:00)
--- NOTE | 2024-09-27 12:56 | P.HP ---
Certification for Inpatient Patient admitted to: Inpatient With expected LOS: >2 Midnights Patient will require the following post-hospital care: Home Health Services Practitioner: I am a practitioner with admitting privileges, knowledge of patient current condition, hospital course, and medical plan of care. Services: Services provided to patient in accordance with Admission requirements found in Title 42 Section 412.3 of the Code of Federal Regulations Patient History Date of Service: 09/27/24 Primary Care Provider: Félix Reason for admission: Left side weakness History of Present Illness: Patient presented to the hospital with lift sided facial weakness. CT angiogram showed some stenosis of the MCA. Possible vasculitis. She was admitted with consult to Dr. Barboza. Please read the hospitalist H&P Allergies No Known Drug Allergies Allergy (Verified 07/12/23 11:53) Unknown Home Medications: Aspirin Enteric Coated [ASPIRIN 81 MG EC*] 162 mg PO DAILY #60 tab 05/07/13 Losartan-50/Hctz-12.5 [Hyzaar 50-12.5*] 1 tab PO DAILY #30 tab 05/07/13 carvediloL [Coreg*] 12.5 mg PO BID #0 tab 05/07/13 Eszopiclone [Lunesta] 3 mg PO BEDTIME PRN 09/17/22 Levothyroxine [Synthroid] 100 mcg PO DAILY 07/12/23 Lisinopril [Zestril] 40 mg PO DAILY 07/12/23 Sertraline [Zoloft] 100 mg PO DAILY 07/12/23 - Past Medical/Surgical History Diabetic: No -: Farr palsey twice -: HTN -: Hypertension -: Hypercholesterol -: [place] -: Hysterectomy -: thyroid CA removal -: Heart stent x1 - Family History Family History: Reviewed- Non-Contributory - Social History Smoking Status: Never smoker Alcohol use: Yes CD- Drugs: No Caffeine use: Yes Place of Residence: Home Review of Systems 10-point ROS is otherwise unremarkable General: Weakness Physical Examination - Vital Signs Temperature: 97.8 F Blood Pressure: 108/61 Pulse: 60 Respirations: 80 Pulse Ox (%): 93 - Physical Exam General: Alert, In no apparent distress HEENT: Atraumatic, PERRLA, Mucous membr. moist/pink, EOMI, Sclerae nonicteric Neck: Supple, 2+ carotid pulse no bruit, No LAD, Without JVD or thyroid abnormality Respiratory: Clear to auscultation bilaterally, Normal air movement Cardiovascular: Regular rate/rhythm, Normal S1 S2 Gastrointestinal: Normal bowel sounds, No tenderness Musculoskeletal: No tenderness Integumentary: No rashes Neurological: Normal gait, Normal speech, Normal strength at 5/5 x4 extr, Normal tone, Normal affect Lymphatics: No axilla or inguinal lymphadenopathy - Studies Laboratory Data (last 24 hrs) 09/26/24 09/26/24 09/26/24 20:48 20:48 20:48 WBC 5.30 Hgb 12.8 Hct 38.6 Plt Count 306 PT 11.7 INR 1.05 APTT 30.6 Sodium 141 Potassium 3.6 BUN 22 H Creatinine 1.26 H Glucose 111 H Magnesium 2.1 Total Bilirubin 0.2 AST 14 L ALT 15 Alkaline Phosphatase 102 Assessment and Plan - Problems (Diagnosis) (1) CVA (cerebral vascular accident) Current Visit: Yes Status: Acute Plan: will await consult with Dr. Barboza. Continue asa, statin, folic acid and magnesium Qualifiers: CVA mechanism: stenosis Precerebral and cerebral artery: middle cerebral artery Laterality of affected vessel: right Qualified Code(s): I63.511 - Cerebral infarction due to unspecified occlusion or stenosis of right middle cerebral artery (2) Essential (primary) hypertension Current Visit: Yes Status: Acute Plan: restart home meds. Adjust as needed (3) Hypothyroidism, unspecified Current Visit: Yes Status: Acute Plan: restart levothyroxine. Will check a tsh Discharge Plan: Home Plan to discharge in: Greater than 2 days - Advance Directives Does patient have a Living Will: No Does patient have a Durable POA for Healthcare: No - Code Status/Comfort Care Code Status Assessed: No Critical Care: No Time Spent Managing Pts Care (In Minutes): 30
[2024-09-27] MEDS: ESZOPICLONE 1 MG TAB PO PRN (20:48)
[2024-09-27] MEDS: ATORVASTATIN 20 MG TAB PO SCH (20:48)
[2024-09-28 04:33] VITALS: O2SAT 97
[2024-09-28 07:23] LABS: Magnesium 2.2 mg/dL (1.6-2.4); Thyroid Stimulating Hormone 0.097 uIU/mL (0.358-3.740)
[2024-09-28] MEDS: FOLIC ACID 1 MG TABLET PO SCH (08:22)
[2024-09-28] MEDS: ASPIRIN 81 MG CHEWABLE TABLET PO SCH (08:22)
[2024-09-28] MEDS: MAGNESIUM OXIDE 400 MG TAB PO SCH (08:23)
--- NOTE | 2024-09-28 11:12 | EKG ---
Test Date: 2024-09-26 Test Time: 20:37:01 Community Resource Officer: CHAPARRITA MEASUREMENT RESULTS: Intervals: Rate: 69 CO: 146 QRSD: 84 QT: 428 QTc: 458 [place]: P: 49 CO: 146 QRS: 16 T: 50 INTERPRETIVE STATEMENTS: Sinus rhythm with occasional premature ventricular complexes Otherwise normal ECG Compared to ECG 01/31/2024 12:18:41 Ventricular premature complex(es) now present ST (T wave) deviation no longer present Electronically Signed On 09-28-24 11:09:41 NEWS VIDEOTAPE EDITOR by Cooper Euceda
--- NOTE | 2024-09-28 12:55 | P.PN ---
Subjective Date of Service: 09/28/24 Primary Care Provider: Félix Chief Complaint: Left side weakness Subjective: No new changes Review of Systems Gastrointestinal: Diarrhea Physical Examination - Vital Signs Temperature: 97.3 F Blood Pressure: 152/82 Pulse: 80 Respirations: 12 Pulse Ox (%): 94 - Physical Exam General: Alert, In no apparent distress HEENT: Atraumatic, PERRLA, EOMI Neck: Supple, JVD not distended Respiratory: Clear to auscultation bilaterally, Normal air movement Cardiovascular: Regular rate/rhythm, Normal S1 S2 Gastrointestinal: Normal bowel sounds, No tenderness Musculoskeletal: No tenderness Integumentary: No rashes Neurological: Normal speech, Normal tone, Normal affect Lymphatics: No axilla or inguinal lymphadenopathy Assessment And Plan - Current Problems (Diagnosis) (1) CVA (cerebral vascular accident) Current Visit: Yes Status: Acute Plan: will await consult with Dr. Barboza. Continue asa, statin, folic acid and magnesium Qualifiers: CVA mechanism: stenosis Precerebral and cerebral artery: middle cerebral artery Laterality of affected vessel: right Qualified Code(s): I63.511 - Cerebral infarction due to unspecified occlusion or stenosis of right middle cerebral artery (2) Essential (primary) hypertension Current Visit: Yes Status: Acute Plan: restart home meds. Adjust as needed (3) Hypothyroidism, unspecified Current Visit: Yes Status: Acute Plan: restart levothyroxine. Will check a tsh Discharge Plan: Home Plan to discharge in: Greater than 2 days - Code Status/Comfort Care Code Status Assessed: No Critical Care: No Time Spent Managing PTS Care (In Minutes): 20
[2024-09-28] MEDS: LOPERAMIDE HCL 2 MG CAPSULE PO PRN (13:20)
--- NOTE | 2024-09-28 14:19 | RAD REPORT ---
EXAMINATION: MRI BRAIN WITHOUT CONTRAST CLINICAL INDICATION: Female, 78 years old. CVA TECHNIQUE: Multiplanar multisequence MR images of the brain were obtained without intravenous contras t. Unless otherwise specified, incidental findings do not require dedicated imaging follow-up. [id number]. COMPARISON: 05/28/2022 FINDINGS: INTRACRANIAL: Small acute infarct centered in the region of the right thalamus. No mass effect or m idline shift.No hydrocephalus. Moderate chronic small vessel ischemic changes.Mild cerebral atrophy. Multiple foci of susceptibility artifact identified within the basal ganglia likely sequela of tiny remote hemorrhagic infarcts. VASCULATURE: Normal signal voids in the larger intracranial arteries and dural venous sinuses. SINUSES: The paranasal sinuses are clear.No mastoid effusions. BONE: The marrow signal pattern is within normal limits. IMPRESSION: Small acute right thalamic lacunar infarct.
[2024-09-29 06:38] LABS: Absolute Basophils 0.1 K/uL (0-0.5); Absolute Eosinophils 0.3 K/uL (0-0.5); Absolute Lymphocytes (CBC) 1.4 K/uL (0.7-4.9); Absolute Monocytes 0.8 K/uL (0.1-1.3); Absolute Neutrophil 3.5 K/uL (1.8-8.0); Basophils % 0.9 % (0-1.3); Eosinophils % 4.7 % (0-4.4); Hematocrit 39.4 % (36.0-45.0); Hemoglobin 13.2 g/dL (12.0-15.0); Lymphocytes % 23.6 % (15.3-44.8); MCH 29.8 pg (27.0-35.0); MCHC 33.6 g/dL (32.0-36.0); MCV 88.6 fL (80-100); MPV 7.2 fL (7.6-11.3); Monocytes % 12.7 % (3.3-12.3); Neutrophils % 58.1 % (41.7-73.7); Nucleated Red Blood Cells % 0.1 % (0-0); Platelets 316 thou/uL (152-406); RBC Red Blood Cell Count 4.44 M/uL (3.86-4.86); Red Cell Distribution Width 13.7 % (12.1-15.2)
[2024-09-29 06:53] LABS: Anion Gap 9.1 mEq/L (5.0-15.0); Bilirubin Total 0.3 mg/dL (0.2-1.0); Globulin 3.1 g/dL (2.3-3.5); Potassium 4.1 mEq/L (3.5-5.1); Protein, Total 6.1 g/dL (6.4-8.2)
--- NOTE | 2024-09-29 11:14 | P.PN ---
Subjective Date of Service: 09/29/24 Primary Care Provider: Félix Chief Complaint: Left side weakness Subjective: No new changes Review of Systems Gastrointestinal: Diarrhea Physical Examination - Vital Signs Temperature: 97.9 F Blood Pressure: 140/70 Pulse: 73 Respirations: 16 Pulse Ox (%): 95 - Physical Exam General: Alert, In no apparent distress HEENT: Atraumatic, PERRLA, EOMI Neck: Supple, JVD not distended Respiratory: Clear to auscultation bilaterally, Normal air movement Cardiovascular: Regular rate/rhythm, Normal S1 S2 Gastrointestinal: Normal bowel sounds, No tenderness Musculoskeletal: No tenderness Integumentary: No rashes Neurological: Normal speech, Normal tone, Normal affect Lymphatics: No axilla or inguinal lymphadenopathy Assessment And Plan - Current Problems (Diagnosis) (1) CVA (cerebral vascular accident) Current Visit: Yes Status: Acute Plan: will await consult with Dr. Barboza. Continue asa, statin, folic acid and magnesium 09/29 small right thalmic infract. Continue PT. Will see if she needs home health or possible snf. Per PT she is doing well. Will await Dr. Newman input Qualifiers: CVA mechanism: stenosis Precerebral and cerebral artery: middle cerebral a rtery Laterality of affected vessel: right Qualified Code(s): I63.511 - Cerebral infarction due to unspecified occlusion or stenosis of right middle cerebral artery (2) Essential (primary) hypertension Current Visit: Yes Status: Acute Plan: restart home meds. Adjust as needed (3) Hypothyroidism, unspecified Current Visit: Yes Status: Acute Plan: restart levothyroxine. Will check a tsh (4) Diarrhea Current Visit: Yes Status: Acute Plan: will order stool electrolytes. Order continue immodium Qualifiers: Diarrhea type: unspecified type Qualified Code(s): R19.7 - Diarrhea, unspecified Discharge Plan: Home Plan to discharge in: 48 Hours - Code Status/Comfort Care Code Status Assessed: No Physician Review: Patient Assessed, Agree with Above Assessment and Plan Critical Care: No Time Spent Managing PTS Care (In Minutes): 25
--- NOTE | 2024-09-29 20:43 | CON ---
Reason For Consultation: Consultation called because of stroke. History Of Present Illness: Ms. Shahid is an 78-year-old right-handed patient with prior s troke, depression, hypertension, who had 3 days worth of left upper and lower extremity weakness, mil d numbness, and dizziness. She came to [facility] on 09/26. She was evaluated by a CT scan of the head, which showed no acute ischemic hemorrhagic findings. She had a CT angiogram of head an d neck. The study already showed left dominant vertebral artery, both were patent. No significant s oft tissue abnormalities. The vessels were clear without obstruction. Unlike the CT angiogram of th e neck, the CT angiogram of the brain did show severe multifocal stenosis on the right V2 segment of the vertebral artery, the left vertebral artery was dominant, basilar artery patent, and there was se nicole focal stenosis of the M3 and M4 segments of the right MCA. High-grade focal stenosis versus shahram rt-segment occlusion of the left P1 segment of the posterior cerebral artery. In addition, the P2 an d P3 segments felt also to be possibly occluded and the radiologist did suggest possibility of vascul itis in the differential. In addition, there was severe multifocal stenosis of again V4 segment of t he right vertebral artery. A brain MRI, which was done 2 days later when MRI became available, did s how small acute infarcts centered in the region of the right thalamus. There was no mass effect or m idline shift. No hydrocephalus. There was moderate chronic small vessel ischemic disease. Mild cer ebral atrophy. Multiple foci of susceptibility artifact identified within the basal ganglia, likely sequelae of remote hemorrhagic infarcts. 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 She is able to ambulate at least 300 feet with a front wheel walker without significant difficulty. Very little difficulty in terms of right leg dragging a s she ambulates with stand sense and balance; however, there is still a tendency to lose her balance with distraction, and the therapist evaluated the patient recommended that she have aggressive therap y. Her son actually is able to take her to outpatient therapy. She is in agreement to do that. Past Medical History: As noted, including prior stroke, depression, hypertension. Allergies: NO KNOWN DRUG ALLERGIES. Surgical History: Multiple artery stents, total abdominal hysterectomy. Allergies: NO KNOWN DRUG ALLERGIES. Medications: Tylenol 500 mg every 4 hours as needed, aspirin 81 mg daily, Lipitor 40 mg at bedtime, Coreg 12.5 mg twice daily, Lovenox 40 mg subcutaneously daily, Lunesta 3 mg at bedtime, folic acid 1 mg daily, Synthroid 0.1 mg daily, Prinivil 10 mg daily, loperamide 2 mg every 4 hours as needed for d iarrhea, magnesium oxide 400 mg daily, Zofran 4 mg every 6 hours as needed, Zoloft 50 mg daily, and s he did receive a liter of normal saline at 75 cc an hour from 09/26. Family History: Noncontributory. Social History: No alcohol, tobacco, or IV drug use. The patient does have family members involved. Her son will be living with her at least in the short term to help facilitate her recovery from str shira. Review of Systems: As noted, she has the left upper and lower extremity weakness, incoordination. Difficulty with ronan ce, gait, coordination. No speech or swallowing difficulty. Has mild difficulty with mood. Mild de pression and anxiety. Otherwise, no rash. No fevers. No chills. No active nausea or vomiting. No significant myalgias or arthralgias. Physical Examination: Vital Signs: Blood pressure 132/73, pulse 65, respiratory rate 16, temperature 97.7, oxygen saturati on 93%. Weight 154 pounds, height 5 feet 5 inches, BMI 25.6. HEENT: Ms. Shahid is normocephalic, atraumatic. Sclerae anicteric. Oropharynx pink and moist. Neck: Supple. Chest: Clear. Heart: Regular. Extremities: No significant clubbing, cyanosis, or edema. Neurological: She is alert and oriented to person, place, time, situation. She follows all commands appropriately. No obvious cranial nerve deficits on through 12. In terms of motor examination, v marissa subtle if any weakness noted on the left upper and lower extremities. Mild loss of sensation in the left upper and lower extremities compared to right. Mild dysmetria noted in the left upper and l ower extremities compared to the right side and a slight tendency for left drift with ambulation, but doing very well despite that and she ambulated with a rolling walker. Laboratory Studies: Complete blood count with differential essentially unremarkable. INR 1.05. Her comprehensive metabolic panel is remarkable for slightly elevated chloride of 111. Otherwise, genaro l sodium, potassium, BUN and creatinine. Glucose 104. Calcium 8.5. Total bilirubin 0.3. Magnesium 2.2. AST 15, ALT 16, alkaline phosphatase 111. Total serum protein low at 6.1. Her TSH is low at 0.097. LDL cholesterol 84, HDL 57, cholesterol to HDL ratio 2.95, total cholesterol 168. She had a normal urinalysis. Her electrocardiogram on 09/26 showed sinus rhythm with occasional premature vent ricular complexes, otherwise normal study. Chest x-ray on 09/26 showed no evidence of acute cardiopu lmonary disease. Assessment And Plan: Ms. Shahid is an 78-year-old patient with hypertension, multiple strokes. The MRI suggests sequelae of multiple microscopic hemorrhages, which may go along with elevated blood pre ssure over an extended period of time. Currently, blood pressures are well controlled. She is recov ering very well from her small acute right thalamic stroke with little neurological deficits. Comorb idities of hypothyroidism, may require mild adjustment. TSH is very, very low. Potentially the adju stment may need to be a decrease in the amount of levothyroxine. May continue aspirin 81 mg daily, L ipitor 40 mg at bedtime, Coreg 12.5 mg twice daily, Zoloft continued for depression. Note, after dis charge, the patient should have outpatient physical therapy and continue medications as noted above. She may follow up in Dr. Barboza's clinic within a month and follow up with Dr. Heard as scheduled. CEZAR/NICOLE Voice ID: [id number] Report ID: [id number]
[2024-09-30 06:42] LABS: Absolute Basophils 0.1 K/uL (0-0.5); Absolute Eosinophils 0.2 K/uL (0-0.5); Absolute Lymphocytes (CBC) 1.5 K/uL (0.7-4.9); Absolute Monocytes 0.8 K/uL (0.1-1.3); Absolute Neutrophil 3.5 K/uL (1.8-8.0); Basophils % 1.2 % (0-1.3); Eosinophils % 3.8 % (0-4.4); Hematocrit 39.8 % (36.0-45.0); Hemoglobin 13.4 g/dL (12.0-15.0); Lymphocytes % 24.4 % (15.3-44.8); MCH 29.7 pg (27.0-35.0); MCHC 33.7 g/dL (32.0-36.0); Monocytes % 12.4 % (3.3-12.3); Neutrophils % 58.2 % (41.7-73.7); Platelets 320 thou/uL (152-406); RBC Red Blood Cell Count 4.52 M/uL (3.86-4.86); Red Cell Distribution Width 13.5 % (12.1-15.2)
[2024-09-30 07:00] LABS: Albumin 3.1 g/dL (3.4-5.0); Anion Gap 6.3 mEq/L (5.0-15.0); Bilirubin Total 0.6 mg/dL (0.2-1.0); Globulin 3.1 g/dL (2.3-3.5); Potassium 4.3 mEq/L (3.5-5.1); Protein, Total 6.2 g/dL (6.4-8.2)
--- NOTE | 2024-09-30 13:06 | P.DS ---
Admission Date: 09/26/24 Discharge Date: 09/30/24 Primary Care Provider: Félix Disposition: ROUTINE DISCHARGE Discharge Condition: FAIR Reason for Admission: Left side weakness - Problems (1) CVA (cerebral vascular accident) Current Visit: Yes Status: Acute Qualifiers: CVA mechanism: stenosis Precerebral and cerebral artery: middle cerebral artery Laterality of affected vessel: right Qualified Code(s): I63.511 - Cerebral infarction due to unspecified occlusion or stenosis of right middle cerebral artery (2) Essential (primary) hypertension Current Visit: Yes Status: Acute (3) Hypothyroidism, unspecified Current Visit: Yes Status: Acute (4) Diarrhea Current Visit: Yes Status: Acute Qualifiers: Diarrhea type: unspecified type Qualified Code(s): R19.7 - Diarrhea, unspecified Brief History of Present Illness: Patient presented to the hospital with lift sided facial weakness. CT angiogram showed some stenosis of the MCA. Possible vasculitis. She was admitted with consult to Dr. Barboza. Please read the hospitalist H&P Hospital Course: Patient was admitted found to have a right lacunar infract. The patient worked with PT. Was seen by Dr Barboza. She can be discharged with home health. Hopefully in a few weeks she will be strong enough for a pt center. Will have her follow up with myself and Dr. Barboza. discharge her on aspirin, statin, Magnesium and folic acid. she may add an otc omega 3 fatty acid. Stressed the importance of sleep, low sugar diets and consistent physical therapy. spent 30 min on the patients discharge Vital Signs/Physical Exam: Temp Pulse Resp BP Pulse Ox 98.2 F 68 16 156/78 H 95 09/30/24 08:00 09/30/24 09:02 09/30/24 08:00 09/30/24 09:02 09/30/24 08:00 General: Alert, In no apparent distress HEENT: Atraumatic, PERRLA, EOMI Neck: Supple, JVD not distended Respiratory: Clear to auscultation bilaterally, Normal air movement Cardiovascular: Regular rate/rhythm, Normal S1 S2 Gastrointestinal: Normal bowel sounds, No tenderness Musculoskeletal: No tenderness Integumentary: No rashes Neurological: Normal speech, Normal tone, Normal affect Lymphatics: No axilla or inguinal lymphadenopathy Laboratory Data at Discharge: WBC 6.10 thou/uL (4.3-10.9) 09/30/24 06:20 Hgb 13.4 g/dL (12.0-15.0) 09/30/24 06:20 Hct 39.8 % (36.0-45.0) 09/30/24 06:20 Plt Count 320 thou/uL (152-406) 09/30/24 06:20 PT 11.7 SECONDS (9.4-12.5) 09/26/24 20:48 INR 1.05 09/26/24 20:48 APTT 30.6 SECONDS (24.3-36.9) 09/26/24 20:48 Sodium 139 mEq/L (136-145) 09/30/24 06:20 Potassium 4.3 mEq/L (3.5-5.1) 09/30/24 06:20 BUN 14 mg/dL (7-18) 09/30/24 06:20 Creatinine 1.07 mg/dL (0.55-1.02) H 09/30/24 06:20 Glucose 107 mg/dL (74-106) H 09/30/24 06:20 Magnesium 2.2 mg/dL (1.6-2.4) 09/28/24 06:36 Total Bilirubin 0.6 mg/dL (0.2-1.0) 09/30/24 06:20 AST 16 U/L (15-37) 09/30/24 06:20 ALT 17 U/L (13-56) 09/30/24 06:20 Alkaline Phosphatase 101 U/L (45-117) 09/30/24 06:20 Triglycerides 137 mg/dL (<150) 09/27/24 04:10 Cholesterol 168 mg/dL (<200) 09/27/24 04:10 HDL Cholesterol 57 mg/dL (40-60) 09/27/24 04:10 Cholesterol/HDL Ratio 2.95 09/27/24 04:10 Home Medications: Aspirin Enteric Coated [ASPIRIN 81 MG EC*] 162 mg PO DAILY #60 tab 05/07/13 Losartan-50/Hctz-12.5 [Hyzaar 50-12.5*] 1 tab PO DAILY #30 tab 05/07/13 carvediloL [Coreg*] 12.5 mg PO BID #0 tab 05/07/13 Eszopiclone [Lunesta] 3 mg PO BEDTIME PRN 09/17/22 Levothyroxine [Synthroid] 100 mcg PO DAILY 07/12/23 Lisinopril [Zestril] 40 mg PO DAILY 07/12/23 Sertraline [Zoloft] 100 mg PO DAILY 07/12/23 Tolterodine Tartrate [Tolterodine Tartrate ER] 4 mg PO DAILY 09/27/24 Aspirin Chewable [Aspirin Chewable*] 81 mg PO DAILY 90 Days #90 tab.chew 09/30/24 Atorvastatin Calcium [Lipitor*] 40 mg PO BEDTIME 90 Days #90 tab 09/30/24 Folic Acid 1 mg PO DAILY 90 Days #90 tab 09/30/24 Magnesium Oxide [Mag 0X*] 400 mg PO DAILY 90 Days #90 tab 09/30/24 New Medications: Aspirin Chewable [Aspirin Chewable*] 81 mg PO DAILY 90 Days #90 tab.chew Folic Acid 1 mg PO DAILY 90 Days #90 tab Atorvastatin Calcium [Lipitor*] 40 mg PO BEDTIME 90 Days #90 tab Magnesium Oxide [Mag 0X*] 400 mg PO DAILY 90 Days #90 tab Diet: AHA Activity: Ad aminah Followup: David Heard MD [Primary Care Provider] - 1 Week Boy Barboza MD [ASSOCIATE-ACTIVE - CAN ADMIT] - 1-2 Weeks Physician Review: Patient Assessed, Agree with Above Assessment and Plan Time spent managing pt's care (in minutes): 30
[2024-09-30 13:49] VITALS: BP 131/73; TEMP 97.8
[2024-10-01] MEDS ORDERED: LEVOTHYROXINE SOD 0.1 MG TAB PO SCH (05:00)
--- NOTE | 2024-10-01 12:59 | ECHO ---
HEIGHT: 5 ft 5 in WEIGHT: 154 lb 0 oz DATE OF STUDY: 09/29/[address]: Alessandro Adam DO 2-DIMENSIONAL: YES M.MODE: YES DOPPLER: YES COLOR FLOW: YES TDS: NO PORTABLE: YES DEFINITY: NO BUBBLE STUDY: NO DIAGNOSIS: CHEST PAIN CARDIAC HISTORY: CATHERIZATION: SURGERY: PROSTHETIC VALVE: PACEMAKER: MEASUREMENTS (cm) DIASTOLIC (NORMALS) SYSTOLIC (NORMALS) IVSd 1.0 (0.6-1.2) LA Diam 2.5 (1.9-4.0) LVEF 57% LVIDd 4.1 (3.5-5.7) LVIDs 2.9 (2.0-3.5) %FS 29% LVPWd 1.1 (0.6-1.2) Ao Diam 2.6 (2.0-3.7) 2 DIMENSIONAL ASSESSMENT: RIGHT ATRIUM: NORMAL LEFT ATRIUM: NORMAL RIGHT VENTRICLE: NORMAL LEFT VENTRICLE: NORMAL TRICUSPID VALVE: TRACE OF TRICUSPID REGURGITATION MITRAL VALVE: NORMAL PULMONIC VALVE: NORMAL AORTIC VALVE: NORMAL PERICARDIAL EFFUSION: NONE AORTIC ROOT: NORMAL LEFT VENTRICULAR WALL MOTION: NORMAL. DOPPLER/COLOR FLOW: GRADE I DIASTOLIC DYSFUNCTION. COMMENTS: 1. NORMAL LEFT VENTRICULAR SYSTOLIC FUNCTION, EJECTION FRACTION 60-65%, NORMAL WALL MOTION. 2. GRADE I DIASTOLIC DYSFUNCTION. 3. NORMAL FILLING PRESSURE (RIGHT ATRIAL PRESSURE 0-5mmHg). TECHNOLOGIST: EARL LIN
== END 2024-09-30 14:22 | disposition home health service (06) | DRG 65 ==
LOC: ER 20:21 → 2ND 22:58
PROVIDERS: ADMIT Family Medicine; ATTEND Internal Medicine
DX: I63.511 Cerebral infarction due to unspecified occlusion or stenosis of right middle cerebral artery (principal); G81.94 Hemiplegia, unspecified affecting left nondominant side; I10 Essential (primary) hypertension; E03.9 Hypothyroidism, unspecified; E78.00 Pure hypercholesterolemia, unspecified; I25.10 Atherosclerotic heart disease of native coronary artery without angina pectoris; R20.2 Paresthesia of skin; R29.810 Facial weakness; R29.706 NIHSS score 6; R19.7 Diarrhea, unspecified; Z79.82 Long term (current) use of aspirin; Z86.73 Personal history of transient ischemic attack (TIA), and cerebral infarction without residual deficits; Z79.890 Hormone replacement therapy; Z79.899 Other long term (current) drug therapy; Z90.710 Acquired absence of both cervix and uterus
CPT/HCPCS: 36415; 70450; 70496; 70498; 70551; 71045; 80048; 80053; 80061; 80076; 81001; 82565; 82947; 83735; 84443; 84484; 85025; 85610; 85730; 86140; 92523; 93005; 93306; 96374; 97112; 97116; 97161; 97530; 99285; J1650; J7030; J8597; Q9967